=== PATIENT | female | born 1970 | race Caucasian/White ===

== ENCOUNTER 2023-11-08 08:42 | Outpatient (OUT) | payer OTHER, SELFPAY ==
[2023-11-08 08:55] LABS: Hemoglobin 11.6 g/dL (12.0-16.0)
--- NOTE | 2023-11-08 09:00 | RT_ITS ---
The [facility] Test Date: 2023-11-08 Pat Name: AMY WADE Department: Room: - Gender: Female [employer]ic: Makayla Wilcox RRT : 1970 Requested By: MITCH LU Order Number: [id number] Reading MD: Hemant Chisholm Interpretive Statements Pulmonary function testing was completed according to ATS criteria. Findings were considered accurate and reproducible. Both pre- and post-bronchodilator values utilized for spirometry. Spirometry (based on pre-bronchodilator values): -FEV1/FVC: Reduced @ 72% -FEV1: Normal @ 92% -FVC: Normal @ 101% -XDI36-13%: Reduced @ 75% -There is no significant bronchodilator response. Lung volumes by plethysmography (based on pre-bronchodilator values): -RV: Normal @ 92% -TLC: Normal @ 110% Diffusion capacity: -DLCO: Normal @ 91% when corrected for Hb 11.6g/dL Flow-volume loop: -Mild flattening of the flow-volume loop Impressions: -Spirometry trends towards a mild obstruction pattern. There is no bronchodilator response. Lung volumes are normal. The diffusion capacity is normal. Overall PFT suggests a mild obstructive lung disease such as asthma or COPD. Clinical correlation required. Electronically Signed On 11-09-2023 14:24:19 EDT by Hemant Chisholm
[2023-11-08] MEDS: ALBUTEROL SULFATE 2.5 MG/3 ML VIAL NEB IH (10:34)
== END 2023-11-08 08:43 | disposition home or self-care (01) ==
LOC: CARD 08:42
PROVIDERS: PCP Family Medicine; Visit Provider Family Medicine
DX: R06.02 Shortness of breath (principal)
CPT/HCPCS: 36415; 85018; 94060; 94726; 94729

== ENCOUNTER 2023-11-14 09:50 | Outpatient (OUT) | payer OTHER, SELFPAY ==
--- NOTE | 2023-11-14 10:02 | US_ITS ---
The [address] [address] Patient Name: AMY WADE MRN: [id number] date: 1970 Sex: F Assigned Patient Location: [place] Current Patient Location: [place] Accession/Order Number: [id number] Exam Date: 11/14/2023 10:05 Report Date: 11/14/2023 10:36 At the request of: MITCH LU Procedure: US right upper quadrant EXAMINATION: US right upper quadrant HISTORY: generalized abdominal pain R10.84 , chronic right upper quadrant pain, bloating COMPARISON: No relevant comparison available. TECHNIQUE: Transabdominal evaluation of the right upper quadrant. FINDINGS: LIVER: Mild fatty infiltration. No suspicious lesion. Color Doppler demonstrates blood flow within hepatic veins. PORTAL VEIN: Duplex Doppler demonstrates normal hepatopetal flow pattern with flow velocity averaging 22 cm/s. GALLBLADDER: No visible gallstones, wall thickening, or pericholecystic free fluid. Negative sonographic Brown's sign. BILIARY: No abnormal dilation or stones. Common bile duct diameter is within normal limits. PANCREASE: No visible mass, abnormal atrophy, or duct dilation. KIDNEY: No hydronephrosis. No visible mass or stones. Size: 10.1 x 4.9 x 4.1 cm US/US right upper quadrant IMPRESSION: 1. Mild fatty infiltration of the liver. 2. No suspicious findings to account for patient's symptoms. Electronically authenticated by: GUERO LICONA Date: 11/14/2023 10:36
--- NOTE | 2023-11-14 10:03 | MM_ITS ---
Patient Name: AMY WADE MR#: [id number] : 1970 Exam Date: 11/14/2023 Ordering Doctor: DR MITCH LU . RADIOLOGY REPORT PROCEDURE: MM TOMOSYNTHESIS SCREENING BI COMPARISON: MG MAMM SCREEN 3D HERLINDA CAD, 11/06/2021. INDICATIONS: screening Calculator Name NCI Breast Cancer Risk Assessment Tool 5 Year Breast Cancer Risk 0.90% Lifetime Breast Cancer Risk 6.80% Personal Breast Cancer No Personal Ovarian Cancer No Treatments None Family Cancers Grandmother-paternal with lung cancer at age 64; Aunt-maternal with lung cancer at age 58; Uncle-maternal with lung cancer at age 66. LOCATION: The [facility] BREAST COMPOSITION: Scattered areas fibroglandular density. FINDINGS: DIAGNOSTIC CATEGORY 0--INCOMPLETE: NEED ADDITIONAL IMAGING EVALUATION. The breasts are stable in size and overall fibroglandular configuration.Scattered benign-appearing calcifications are present. Scattered benign-appearing lymph nodes are present. RIGHT BREAST: No significant suspicious finding. LEFT BREAST: New ill-defined partially circumscribed 9.6 x 6.9 by 6.6 mm left focal asymmetry upper outer quadrant. Spot compression and ultrasound follow-up recommended. RECOMMENDATIONS: ADDITIONAL MAMMOGRAPHIC VIEWS REQUIRED: LEFT BREAST - spot compression ULTRASOUND: LEFT BREAST PLEASE NOTE: A NORMAL MAMMOGRAM DOES NOT EXCLUDE THE POSSIBILITY OF BREAST CANCER. A CLINICALLY SUSPICIOUS PALPABLE LUMP SHOULD BE BIOPSIED. Dictated by: Lawrence Ricardo MD on 11/15/2023 at 07:43 Approved by: Lawrence Ricardo MD on 11/15/2023 at 07:46
[2023-11-14 10:41] LABS: Basophils Absolute Auto 0.1 10^3/uL (0.0-0.1); Basophils Percent Auto 1.5 % (0.2-2.0); Eosinophils Absolute Auto 0.1 10^3/uL (0.0-0.7); Hematocrit 39.3 % (36.0-48.0); Hemoglobin 12.5 g/dL (12.0-16.0); Immature Granulocytes Abs Auto 0.01 10^3/uL (0.00-0.03); Immature Granulocytes Pct Auto 0.2 % (0.0-0.5); Lymphocytes Absolute Auto 1.3 10^3/uL (1.2-3.8); Lymphocytes Percent Auto 32.5 % (20.5-60.0); Mean Corpuscular HGB Conc 31.8 g/dL (29.9-35.2); Mean Corpuscular Hemoglobin 28.5 pg (26.7-34.0); Mean Corpuscular Volume 89.5 fL (81.0-99.0); Monocytes Absolute Auto 0.4 10^3/uL (0.3-0.8); Monocytes Percent Auto 10.1 % (1.7-12.0); Neutrophils Absolute Auto 2.1 10^3/uL (1.4-6.5); Neutrophils Percent Auto 52.7 % (43.0-75.0); Platelet Count 235 10^3/uL (150-450); Red Blood Count 4.39 10^6/uL (4.20-5.40); Red Cell Distribution Width 13.7 % (11.0-15.0); White Blood Count 4.1 10^3/uL (4.0-11.0)
[2023-11-14 10:58] LABS: Estimated Average Glucose 100 mg/dL; Glycohemoglobin A1C 5.1 % (4.5-6.2)
[2023-11-14 12:50] LABS: Alanine Aminotransferase 32 U/L (14-59); Albumin Globulin Ratio 1.1; Albumin Level 3.8 g/dL (3.4-5.0); Alkaline Phosphatase 68 U/L (46-116); Anion Gap 10.6; Aspartate Amino Transferase 17 U/L (15-37); BUN Creatinine Ratio 23.2; Bilirubin Direct 0.1 mg/dL (0.0-0.2); Bilirubin Total 0.4 mg/dL (0.2-1.0); Calcium 8.9 mg/dL (8.5-10.1); Chloride 107 mmol/L (98-107); Chol HDL Ratio 2.8; Cholesterol 229 mg/dL (<=200); Estimated GFR (African America >60 (>=60); Estimated GFR (Non-African Ame >60 (>=60); Globulin 3.4 g/dL; Glucose 92 mg/dL (74-106); HDL Cholesterol 83 mg/dL (40-60); Potassium 3.6 mmol/L (3.5-5.1); Sodium 143 mmol/L (136-145); Thyroid Stimulating Hormone 2.274 uIU/mL (0.358-3.740); Total Protein 7.2 g/dL (6.4-8.2); Triglycerides 48 mg/dL (<=150); VLDL CHOLESTEROL 9.6 mg/dL
== END 2023-11-14 09:51 | disposition home or self-care (01) ==
LOC: US 09:51
PROVIDERS: PCP Family Medicine; Visit Provider Family Medicine
DX: Z00.00 Encounter for general adult medical examination without abnormal findings (principal); Z12.31 Encounter for screening mammogram for malignant neoplasm of breast; R10.84 Generalized abdominal pain; Z80.1 Family history of malignant neoplasm of trachea, bronchus and lung; N64.89 Other specified disorders of breast
CPT/HCPCS: 36415; 76705; 77063; 77067; 80048; 80061; 80076; 83036; 84443; 85025

== ENCOUNTER 2023-12-01 08:40 | Outpatient (OUT) | payer OTHER, SELFPAY ==
--- NOTE | 2023-12-01 08:45 | MM_ITS ---
Patient Name: AMY WADE MR#: [id number] : 1970 Exam Date: 12/01/2023 Ordering Doctor: DR Alfonso Shaffer . RADIOLOGY REPORT PROCEDURE: MM DIAGNOSTIC MAMMO UNILAT LT, 12/01/2023, 08:08 US BREAST LT LIMITED, 12/01/2023, 09:38 COMPARISON: MM TOMOSYNTHESIS SCREENING BI, 11/14/2023. MG MAMM SCREEN 3D HERLINDA CAD, 11/06/2021. INDICATIONS: Abnormal Mammogram Calculator Name NCI Breast Cancer Risk Assessment Tool 5 Year Breast Cancer Risk 0.90% Lifetime Breast Cancer Risk 6.80% Personal Breast Cancer No Personal Ovarian Cancer No Treatments None Family Cancers Grandmother-paternal with lung cancer at age 64; Aunt-maternal with lung cancer at age 58; Uncle-maternal with lung cancer at age 66. LOCATION: The [facility] BREAST COMPOSITION: There are scattered areas of fibroglandular density. FINDINGS: DIAGNOSTIC CATEGORY 2--BENIGN FINDING: LEFT BREAST: No significant suspicious finding on today's spot magnification views. Ultrasound evaluation demonstrates normal appearing fibroglandular tissue within upper outer quadrant. Annual screening mammography is recommended. RECOMMENDATIONS: ROUTINE MAMMOGRAM AND CLINICAL EVALUATION IN 12 MONTHS. PLEASE NOTE: A NORMAL MAMMOGRAM DOES NOT EXCLUDE THE POSSIBILITY OF BREAST CANCER. A CLINICALLY SUSPICIOUS PALPABLE LUMP SHOULD BE BIOPSIED. Dictated by: Curly Hernandez M.D. on 12/01/2023 at 12:08 Approved by: Curly Hernandez M.D. on 12/01/2023 at 12:10
== END 2023-12-01 08:41 | disposition home or self-care (01) ==
LOC: MAMMO 08:40
PROVIDERS: PCP Family Medicine; Visit Provider Family Medicine
DX: R92.8 Other abnormal and inconclusive findings on diagnostic imaging of breast (principal); Z80.1 Family history of malignant neoplasm of trachea, bronchus and lung
CPT/HCPCS: 76642; 77065

== ENCOUNTER 2023-12-01 08:41 | Outpatient (OUT) | payer OTHER, SELFPAY ==
--- NOTE | 2023-12-01 09:20 | FL_ITS ---
The [address] [address] Patient Name: AMY WADE MRN: [id number] date: 1970 Sex: F Assigned Patient Location: [place] Current Patient Location: [place] Accession/Order Number: [id number] Exam Date: 12/01/2023 10:15 Report Date: 12/01/2023 14:30 At the request of: CHELSEA STEWART Procedure: FL small bowel follow through EXAMINATION: FL upper GI w air, FL small bowel follow through, FL cineradiography HISTORY: Generalized Abdominal Pain R10.84, Cyclic Bloating COMPARISON: No relevant comparison available. TECHNIQUE: Upper GI and small bowel series was performed in the usual manner. Standard level fluoroscopic mode of operation utilized. FINDINGS: ESOPHAGUS: Normal. No visible obstruction, dilatation, reflux or hernia. STOMACH: Normal. No obstruction, mass, or ulceration. Normal motility. DUODENUM: Normal. No ulceration or diverticulum. JEJUNUM: Normal. Normal motility. No obstruction or visible lesion. ILEUM: Normal. Normal motility. No obstruction or visible lesion. OTHER: Negative. FL/FL small bowel follow through IMPRESSION: 1. Normal appearance of the stomach and small bowel. Contrast passes into the colon at 3.5 hours which is within normal limits. Electronically authenticated by: GUERO LICONA Date: 12/01/2023 14:30
--- NOTE | 2023-12-01 09:20 | FL_ITS ---
The [address] [address] Patient Name: AMY WADE MRN: [id number] date: 1970 Sex: F Assigned Patient Location: [place] Current Patient Location: [place] Accession/Order Number: [id number] Exam Date: 12/01/2023 10:15 Report Date: 12/01/2023 14:30 At the request of: CHELSEA STEWART Procedure: FL cineradiography EXAMINATION: FL upper GI w air, FL small bowel follow through, FL cineradiography HISTORY: Generalized Abdominal Pain R10.84, Cyclic Bloating COMPARISON: No relevant comparison available. TECHNIQUE: Upper GI and small bowel series was performed in the usual manner. Standard level fluoroscopic mode of operation utilized. FINDINGS: ESOPHAGUS: Normal. No visible obstruction, dilatation, reflux or hernia. STOMACH: Normal. No obstruction, mass, or ulceration. Normal motility. DUODENUM: Normal. No ulceration or diverticulum. JEJUNUM: Normal. Normal motility. No obstruction or visible lesion. ILEUM: Normal. Normal motility. No obstruction or visible lesion. OTHER: Negative. FL/FL cineradiography IMPRESSION: 1. Normal appearance of the stomach and small bowel. Contrast passes into the colon at 3.5 hours which is within normal limits. Electronically authenticated by: GUERO LICONA Date: 12/01/2023 14:30
--- NOTE | 2023-12-01 09:20 | FL_ITS ---
The [address] [address] Patient Name: AMY WADE MRN: [id number] date: 1970 Sex: F Assigned Patient Location: [place] Current Patient Location: [place] Accession/Order Number: [id number] Exam Date: 12/01/2023 10:15 Report Date: 12/01/2023 14:30 At the request of: CHELSEA STEWART Procedure: FL upper GI w air EXAMINATION: FL upper GI w air, FL small bowel follow through, FL cineradiography HISTORY: Generalized Abdominal Pain R10.84, Cyclic Bloating COMPARISON: No relevant comparison available. TECHNIQUE: Upper GI and small bowel series was performed in the usual manner. Standard level fluoroscopic mode of operation utilized. FINDINGS: ESOPHAGUS: Normal. No visible obstruction, dilatation, reflux or hernia. STOMACH: Normal. No obstruction, mass, or ulceration. Normal motility. DUODENUM: Normal. No ulceration or diverticulum. JEJUNUM: Normal. Normal motility. No obstruction or visible lesion. ILEUM: Normal. Normal motility. No obstruction or visible lesion. OTHER: Negative. FL/FL upper GI w air IMPRESSION: 1. Normal appearance of the stomach and small bowel. Contrast passes into the colon at 3.5 hours which is within normal limits. Electronically authenticated by: GUERO LICONA Date: 12/01/2023 14:30
== END 2023-12-01 08:42 | disposition home or self-care (01) ==
LOC: FL 08:41
PROVIDERS: PCP Family Medicine; Visit Provider Surgery
DX: R92.8 Other abnormal and inconclusive findings on diagnostic imaging of breast (principal); Z80.1 Family history of malignant neoplasm of trachea, bronchus and lung; R10.84 Generalized abdominal pain; K59.09 Other constipation
CPT/HCPCS: 74246; 74248; 76120; 76642; 77065

== ENCOUNTER 2024-09-07 12:54 | Outpatient (OUT) | payer OTHER, SELFPAY ==
--- NOTE | 2024-09-07 12:59 | XR_ITS ---
The [place] [id number] Patient Name: AMY WADE MRN: [id number] date: 1970 Sex: F Assigned Patient Location: [facility] Current Patient Location: Accession/Order Number: [id number] Exam Date: 09/07/2024 13:38 Report Date: 09/10/2024 11:42 At the request of: MITCH LU Procedure: XR lumbar spine 2-3V EXAMINATION: XR lumbar spine 2-3V HISTORY: Lumbar Spondylosis ; chronic low back pain COMPARISON: No relevant comparison available. FINDINGS: BONES: Mild-moderate degenerative facet arthropathy L3-4 through L5-S1. No fracture or spondylolisthesis. DISC SPACES: Moderate narrowing L5-S1. PARASPINOUS: Negative. No paraspinous abnormality is seen. OTHER: Negative. XR/XR lumbar spine 2-3V IMPRESSION: 1. Moderate degenerative changes of lower lumbar spine. Consider MRI for further evaluation. Electronically authenticated by: GUERO LICONA Date: 09/10/2024 11:42
--- OUTSIDE RECORDS SUMMARY | 2024-09-07 13:15 | XMS_ITS | CCD ---
Author Organization [facility] Care Team Providers Care Enterprise Infrastructure Architect Name Role Phone TABITHA, DR ALFONSO Krause Attending Unavailable NADERER, DR ALFONSO Krause Admitting Unavailable NADERER, DR ALFONSO Krause Consulting Unavailable NADERER, DR ALFONSO Krause Admitting Unavailable MONAE, DR GUERO Charles Consulting Unavailable NADERER, DR ALFONSO Krause Attending Unavailable NADERER, DR ALFONSO Krause Consulting Unavailable NADERER, DR ALFONSO Krause Admitting Unavailable WEST, DR MAYCOL Preciado Consulting Unavailable NADERER, DR ALFONSO Krause Attending Unavailable NADERER, DR ALFONSO Krause Consulting Unavailable NADERER, DR ALFONSO Krause Admitting Unavailable WEST, DR MAYCOL Preciado Consulting Unavailable NADERER, DR ALFONSO Krause Attending Unavailable NADERER, DR ALFONSO Krause Consulting Unavailable NADERER, DR ALFONSO Krause Attending Unavailable NADERER, DR ALFONSO Krause Admitting Unavailable NADERER, DR ALFONSO Krause Consulting Unavailable LIBIAMITUL Primary Care Physician ALFONSO LU Primary Care Unavailable OSWALDO MERCHANT Attending Unavailable NADEREAraceli, ALFONSO Primary Care Unavailable ALEX GRIFFIN Attending [facility] OSWALDO Babb Attending Unavailable OSWALDO MERCHANT Referring Unavailable NADEREAraceli, ALFONSO Primary Care Unavailable NADEREAraceli, ALFONSO Attending Unavailable CHELSEA STEWART Attending Unavailable NADERER, ALFONSO Referring Unavailable NADERER, ALFONSO Attending Unavailable NADERER, ALFONSO Attending Unavailable Naderer Alfonso TAMAYO Primary Care Provider Allergies Allergy Classification Reported Allergen(s) Allergy Type Date of Onset Reaction(s) Facility (7 sources) fentaNYL; Translations: [FENTANYL] Drug Allergy 4 GI intolerance [facility] Medications Current Medications Medication Drug Class(es) Dates Sig (Normalized) Sig (Original) [id number] 200 actuat albuterol 0.09 mg/actuat metered dose inhaler (7 sources) beta2-Adrenergic Agonist Start: 11-17-2023 take 2 puff(s) by inhalation every four hours for wheezing albuterol HFA 90 mcg/act inhaler Indications: Mild intermittent asthma without complication (CMS/HCC) Inhale 2 puffs every 4 (four) hours if needed for wheezing 18 g 3 11/17/2023 Active ALPRAZolam 1 mg oral tablet (10 sources) Benzodiazepine Start: 08-31-2023 End: 07-14-2024 take 1 tablet by mouth three times daily as needed for anxiety ALPRAZolam (Xanax) 1 MG tablet Indications: OSCAR (generalized anxiety disorder) (CMS/HCC) Take 1 tablet (1 mg) by mouth 3 (three) times a day as needed for anxiety 90 tablet 1 06/14/2024 Active Start: 10-09-2018 take 1 mg by mouth once daily alprazolam 1 mg, Oral, Daily, Refills(s) 0, Anxiety Start Date: 10/09/18 Status: Ordered cyclobenzaprine hydrochloride 10 mg oral tablet (2 sources) Muscle Relaxant Start: 09-06-2024 take 1 tablet by mouth three times daily as needed for muscle spasms cyclobenzaprine (Flexeril) 10 MG tablet Indications: Lumbar spondylosis Take 1 tablet (10 mg) by mouth 3 (three) times a day as needed for muscle spasms 60 tablet 2 09/06/2024 Active ibuprofen 800 mg oral tablet (7 sources) Nonsteroidal Anti-inflammatory Drug Start: 09-14-2023 take 1 tablet by mouth three times daily as needed ibuprofen 800 MG tablet Indications: Spondylosis without myelopathy or radiculopathy, lumbar region , Lumbosacral spondylosis without myelopathy TAKE 1 TABLET BY MOUTH THREE TIMES A DAY NEEDED 90 tablet 5 09/14/2023 Active lisinopril 10 mg oral tablet (1 source) Angiotensin Converting Enzyme Inhibitor Start: 11-24-2021 take 1 tablet by mouth once daily lisinopril 10 mg Tab 10 mg = 1 tab(s), Oral, Daily, Refills(s) 0 Start Date: 11/24/21 Status: Ordered meclizine hydrochloride 25 mg oral tablet (6 sources) Antiemetic Start: 03-27-2024 take 1 tablet by mouth four times daily as needed for dizziness meclizine (Antivert) 25 MG tablet Indications: Vertigo Take 1 tablet (25 mg) by mouth 4 (four) times a day as needed for dizziness 60 tablet 2 03/27/2024 Active predniSONE 50 mg oral tablet (2 sources) Start: 09-06-2024 End: 09-12-2024 take 1 tablet by mouth once daily predniSONE (Deltasone) 50 MG tablet Indications: Lumbar spondylosis Take 1 tablet (50 mg) by mouth Daily for 6 days 6 tablet 09/06/2024 09/12/2024 Active Semaglutide,0.25 or 0.5MG/DOS, (Ozempic, 0.25 or 0.5 MG/DOSE,) 2 MG/3ML solution pen-injector (7 sources) Start: 07-30-2024 Semaglutide,0.25 or 0.5MG/DOS, (Ozempic, 0.25 or 0.5 MG/DOSE,) 2 MG/3ML solution pen-injector Indications: NAFL (nonalcoholic fatty liver) INJECT 0.5MG UNDER THE SKIN ONCE WEEKLY 3 mL 3 07/30/2024 Active Start: 04-12-2024 Semaglutide,0. 25 or 0.5MG/DOS, (Ozempic, 0.25 or 0.5 MG/DOSE,) 2 MG/3ML solution pen-injector Indications: NAFL (nonalcoholic fatty liver) INJECT 0.5 MG UNDER THE SKIN 1 (ONE) TIME PER WEEK 3 mL 3 04/12/2024 Active Start: 12-29-2023 Semaglutide,0. 25 or 0.5MG/DOS, (Ozempic, 0.25 or 0.5 MG/DOSE,) 2 MG/3ML solution pen-injector Indications: NAFL (nonalcoholic fatty liver) Inject 0.5 mg under the skin 1 (one) time per week 3 mL 3 12/29/2023 Active Completed/Discontinued Medications Medication Drug Class(es) Dates Sig (Normalized) Sig (Original) pantoprazole 40 mg delayed release oral tablet (7 sources) Proton Pump Inhibitor Start: 03-14-2024 End: 09-06-2024 take 1 tablet by mouth before mealtime pantoprazole (ProtoNix) 40 MG EC tablet Indications: Gastroesophageal reflux disease without esophagitis TAKE 1 TABLET (40 MG) BY MOUTH IN THE MORNING. TAKE BEFORE MEALS. DO NOT CRUSH, CHEW, OR SPLIT. 90 tablet 1 03/14/2024 09/06/2024 Discontinued Problems Active Problems Problem Classification Problem Date Documented Da te Episodic/Chronic Anxiety disorders (12 sources) Generalized anxiety disorder; Translations: [Generalized anxiety disorder] Onset: 4 11-24-2021 Chronic Asthma (9 sources) Mild intermittent asthma; Translations: [Mild intermittent asthma, uncomplicated] Onset: 4 11-09-2023 Chronic Attention-deficit, conduct, and disruptive behavior disorders (1 source) Attention deficit hyperactivity disorder, predominantly inattentive type 11-24-2021 Chronic Disorders of lipid metabolism (8 sources) Dyslipidemia; Translations: [Hyperlipidemia, unspecified] Onset: 4 11-24-2021 Chronic Epilepsy; convulsions (10 sources) Epilepsy; 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] Onset: 4 11-24-2021 Chronic Esophageal disorders (7 sources) Gastroesophageal reflux disease without esophagitis; Translations: [Gastro-esophageal reflux disease without esophagitis] Onset: 4 10-26-2023 Chronic Essential hypertension (8 sources) Hypertensive disorder; Translations: [Benign essential hypertension] Onset: 4 11-24-2021 Chronic Headache; including migraine (9 sources) Migraine; Translations: [Migraine without aura, not refractory ] Onset: 4 11-24-2021 Chronic Headache; including migraine (1 source) Headache Onset: Episodic Headache; including migraine (2 sources) Headache; including migraine; Translations: [Headache, unspecified] Onset: 4 Nausea and vomiting (2 sources) Nausea with vomiting, unspecified; Translations: [Vomiting] Onset: 4 Episodic Other gastrointestinal disorders (1 source) Irritable bowel syndrome 11-24-2021 Chronic Other gastrointestinal disorders (7 sources) Irritable bowel syndrome characterized by constipation; Translations: [Irritable bowel syndrome with constipation] Onset: 4 09-14-2023 Chronic Other liver diseases (9 sources) Non-alcoholic fatty liver; Translations: [Fatty (change of) liver, not elsewhere classified] Onset: 4 11-17-2023 Chronic Other nutritional; endocrine; and metabolic disorders (7 sources) Metabolic syndrome X; Translations: [Metabolic syndrome] Onset: 4 11-17-2023 Chronic Other nutritional; endocrine; and metabolic disorders (1 source) Body mass index 25-29 - overweight 12-08-2021 Episodic Other skin disorders (6 sources) Localized swelling, mass and lump, trunk; Translations: [LOCALIZD SWELLING MASS AND LUMP TRUNK] Onset: 2 Episodic Other skin disorders (1 source) Mass of chest wall 11-24-2021 Episodic Residual codes; unclassified (1 source) Family history of malignant neoplasm of trachea, bronchus and lung; Translations: [FAM HX MALIG NEOPLSM TRACH BRON LNG] Onset: 2 Episodic Residual codes; unclassified (1 source) Insomnia 11-24-2021 Episodic Spondylosis; intervertebral disc disorders; other back problems (10 sources) Lumbar spondylosis; Translations: [Spondylosis without myelopathy or radiculopathy, lumbar region] Onset: 4 11-24-2021 Chronic Unclassified (3 sources) CONTACT W/AND (SUSP) EXPOS COVID-19; Translations: [CONTACT W/AND (SUSP) EXPOS COVID-19] Onset: 1 Past or Other Problems Problem Classification Problem Date Documented Date Episodic/Chronic Abdominal pain (7 sources) Generalized abdominal pain; Translations: [Generalized abdominal pain] Onset: 10-26-2023 10-26-2023 Episodic Conditions associated with dizziness or vertigo (8 sources) Vertigo; Translations: [Dizziness and giddiness] Onset: 03-27-2024 03-27-2024 Episodic Disorders usually diagnosed in infancy, childhood, or adolescence (7 sources) Adult attention deficit hyperactivity disorder ; Translations: [Other specified behavioral and emotional disorders with onset usually occurring in childhood and adolescence] Onset: 09-14-2023 Resolved: 11-17-2023 11-17-2023 Chronic Mood disorders (8 sources) Major depressive disorder; Translations: [Recurrent major depressive episodes, mild ] Onset: 09-14-2023 Resolved: 11-17-2023 11-24-2021 Chronic Other screening for suspected conditions (not mental disorders or infectious disease) (11 sources) Encounter for screening mammogram for malignant neoplasm of breast; Translations: [Mammography abnormal] Onset: 11-06-2021 Episodic Unclassified (1 source) CONTACT W/AND (SUSP) EXPOS COVID-19; Translations: [CONTACT W/AND (SUSP) EXPOS COVID-19] Onset: 06-29-2021 Results Test Name Value Interpretation Reference Range Facility CBC AND AUTO DIFFon 11-26-19 24 ABSOLUTE BASOPHIL 0.0 X10E9/L Normal 0.0-0.2 [facility] Comment on above: Performed By: #### Jaimee LINDO CMP, 0-3 #### [facility] ([id number]) [address] [place] [address] 48603 ABSOLUTE NEUTROPHIL 5.2 X10E9/L Normal 1.5-6.6 [facility] Comment on above: Performed By: #### Jaimee LINDO CMP, 3039-3 #### [facility] ([id number]) [address] [place] [address] 17101 Basophils/100 WBC (Bld) 0.7 % Normal [facility] Comment on above: Performed By: #### Jaimee LINDO CMP, 3039-3 #### [facility] ([id number]) [address] [place] [address] 30196 Eosinophils (Bld) [#/Vol] 0.0 10*3/uL Normal 0.0-0.4 [facility] Comment on above: Performed By: #### Jaimee LINDO CMP, 3039-3 #### [facility] ([id number]) [address] [place] [address] 78040 Eosinophils/100 WBC (Bld) 0.1 % Normal [facility] Comment on above: Performed By: #### Jaimee LINDO CMP, 3039-3 #### [facility] ([id number]) [address] [place] [address] 22843 Erythrocyte distribution width (RBC) [Ratio] 14.4 % Normal 11.5-15.0 [facility] Comment on above: Performed By: #### Jaimee LINDO CMP, 3039-10 #### [facility] ([id number]) [address] [place] [address] 62105 Hematocrit (Bld) [Volume fraction] 41.3 % Normal 35-47 [facility] Comment on above: Performed By: #### Jaimee LINDO CMP, 3 #### [facility] ([id number]) [address] [place] [address] 10535 Hemoglobin (Bld) [Mass/Vol] 14.0 g/dL Normal 11.7-15.5 [facility] Comment on above: Performed By: #### Jaimee LINDO CMP, 3039-10 #### [facility] ([id number]) [address] [place] [address] 59259 Lymphocytes (Bld) [#/Vol] 1.1 10*3/uL Normal 1.0-3.5 [facility] Comment on above: Performed By: #### Jaimee LINDO CMP, 3039-10 #### [facility] ([id number]) [address] [place] [address] 70480 Lymphocytes/100 WBC (Bld) 16.8 % Normal [facility] Comment on above: Performed By: #### Jaimee LINDO CMP, 3039-10 #### [facility] ([id number]) [address] [place] [address] 82805 MCH (RBC) [Entitic mass] 29.0 pg Normal 27-34 [facility] Comment on above: Performed By: #### Jaimee LINDO CMP, 3 #### [facility] ([id number]) [address] [place] [address] 02682 MCHC (RBC) [Mass/Vol] 33.9 g/dL Normal 32-36 [facility] Comment on above: Performed By: #### Jaimee LINDO CMP, 3 #### [facility] ([id number]) [address] [place] [address] 15995 MCV (RBC) [Entitic vol] 86 fL Normal 80-100 [facility] Comment on above: Performed By: #### Jaimee LINDO CMP, 3040-3 #### [facility] ([id number]) [address] [place] [address] 52412 Monocytes (Bld) [#/Vol] 0.5 10*3/uL Normal 0-0.9 [facility] Comment on above: Performed By: #### Jaimee LINDO CMP, 3 #### [facility] ([id number]) [address] [place] [address] 57086 Monocytes/100 WBC (Bld) 6.8 % Normal [facility] Comment on above: Performed By: #### Jaimee LINDO CMP, 3 #### [facility] ([id number]) [address] [place] [address] 65944 Neutrophils/100 WBC (Bld) 75.6 % Normal [facility] Comment on above: Performed By: #### Jaimee LINDO, CMP, 3 #### [facility] ([id number]) [address] [place] [address] 31702 Platelet mean volume (Bld) [Entitic vol] 9.9 fL Normal 7-12 [facility] Comment on above: Performed By: #### Jaimee LINDO CMP, 3039-3 #### [facility] ([id number]) [address] [place] [address] 65617 Platelets (Bld) [#/Vol] 296 10*3/uL Normal 150-450 [facility] Comment on above: Performed By: #### Jaimee LINDO, CMP, 3039-3 #### [facility] ([id number]) [address] [place] [address] 88826 RBC COUNT 4.82 X10E12/L Normal 3.80-5.20 [facility] Comment on above: Performed By: #### C TAHIRA LINDO, 3040-3 #### [facility] ([id number]) [address] [place] [address] 13349 WBC (Bld) [#/Vol] 6.8 10*3/uL Normal 4.0-11.0 [facility] Comment on above: Performed By: #### C TAHIRA LINDO, 3039-3 #### [facility] ([id number]) [address] [place] [address] 41498 COMPREHENSIVE METABOLIC PANE Maulik 11-26-2023 Albumin [Mass/Vol] 4.7 g/dL Normal 3.2-5.3 [facility] Comment on above: Performed By: #### Jaimee LINDO CMP, 0-3 #### [facility] ([id number]) [address] [place] [address] 60446 ALP [Catalytic activity/Vol] 77 U/L Normal 39-130 [facility] Comment on above: Performed By: #### Jaimee LINDO CMP, 0-3 #### [facility] ([id number]) [address] [place] [address] 40323 ALT [Catalytic activity/Vol] 23 U/L Normal 0-31 [facility] Comment on above: Result Comment: SPEC IMEN HEMOLYZED, RESULTS INCREASED Performed By: #### C BELGICA, CMP, 0-3 #### [facility] ([id number]) [address] [place] [address] 76633 Anion gap [Moles/Vol] 12 mmol/L Normal 5-15 [facility] Comment on above: Performed By: #### Jaimee LINDO, CMP, 3040-3 #### [facility] ([id number]) [address] [place] [address] 31255 AST [Catalytic activity/Vol] 34 U/L Normal 0-41 [facility] Comment on above: Result Comment: SPEC IMEN HEMOLYZED, RESULTS INCREASED Performed By: #### C TAHIRA LINDO, 0-3 #### [facility] ([id number]) [address] [place] [address] 80036 Bilirubin [Mass/Vol] 1.2 mg/dL Normal 0.3-1.2 [facility] Comment on above: Result Comment: RESU LTS QUESTIONABLE DUE TO HEMOLYSIS Performed By: #### C TAHIRA LINDO, 3039-3 #### [facility] ([id number]) [address] [place] [address] 79184 Calcium [Mass/Vol] 9.3 mg/dL Normal 8.5-10.5 [facility] Comment on above: Performed By: #### C TAHIRA LINDO, 3039-3 #### [facility] ([id number]) [address] [place] [address] 73212 Chloride [Moles/Vol] 106 mmol/L Normal 98-109 [facility] Comment on above: Performed By: #### C TAHIRA LINDO, 3039-3 #### [facility] ([id number]) [address] [place] [address] 40600 CO2 [Moles/Vol] 21 mmol/L Low 22-32 [facility] Comment on above: Performed By: #### Jaimee LINDO CMP, 3039-3 #### [facility] ([id number]) [address] [place] [address] 67821 Creatinine [Mass/Vol] 0.79 mg/dL Normal 0.40-1.00 [facility] Comment on above: Result Comment: METH OD TRACEABLE TO IDMS STANDARD Performed By: #### C TAHIRA LINDO, 0-3 #### [facility] ([id number]) [address] [place] [address] 92290 GFR/1.73 sq M.predicted among non-blacks MDRD (S/P/Bld) [Vol rate/Area] 89 mL/min/{1.73_m2} Normal >59 [facility] Comment on above: Result Comment: Reported eGFR is based on the CKD-EPI 2020 equation that does not use a race coefficient. Performed By: #### C TAHIRA LINDO, 3040-3 #### [facility] ([id number]) [address] [place] [address] 66699 Glucose [Mass/Vol] 90 mg/dL Normal 65-99 [facility] Comment on above: Performed By: #### Jaimee LINDO CMP, 3039-3 #### [facility] ([id number]) [address] [place] [address] 32047 Potassium [Moles/Vol] 4.0 mmol/L Normal 3.5-5.0 [facility] Comment on above: Result Comment: SPEC IMEN HEMOLYZED, RESULTS INCREASED Performed By: #### Jaimee LINDO CMP, 3 #### [facility] ([id number]) [address] [place] [address] 39750 Protein [Mass/Vol] 8.2 g/dL High 6.0-8.0 [facility] Comment on above: Performed By: #### Jaimee LINDO CMP, 3039-3 #### [facility] ([id number]) [address] [place] [address] 52775 Sodium [Moles/Vol] 139 mmol/L Normal 134-146 [facility] Comment on above: Performed By: #### C TAHIRA LINDO, 0-3 #### [facility] ([id number]) [address] [place] [address] 53455 Urea nitrogen [Mass/Vol] 21 mg/dL Normal 5-23 [facility] Comment on above: Performed By: #### Jaimee LINDO CMP, 0-3 #### [facility] ([id number]) [address] [place] [address] [place] [address] [address]RAIN WO CONT[address] CT BRAIN WO CONT CT BRAIN WO CONT CLINICAL INFORMATION: Headache, chronic, new features or increased frequency TECHNIQUE: CT BRAIN WO CONT CT images of the brain were obtained. There is no acute intracranial hemorrhage or cortical infarct. No mass is seen. Basilar cisterns are patent. Osseous structures are unremarkable. IMPRESSION: No acute intracranial findings. All CT scans at this facility use dose modulation, iterative reconstruction, and/or weight based dosing when appropriate to reduce radiation dose to as low as reasonably achievable. Finalized by Nicola Saleh MD on 11/26/2023 10:40 AM Normal [facility] LIPASEon 11-26-2023 Lipase [Catalytic activity/Vol] 27 U/L Normal 17-40 [facility] Comment on above: Performed By: #### C BCA, CMP, 3040-3 #### [facility] ([id number]) [address] [place] [address] 00533 URN MACROSCOPIC NURon 2023 BILIRUBIN DAYDAY Small Abnormal NEG [facility] Comment on above: Performed By: #### N UM #### [facility] ([id number]) [address] [place] [address] 07846 BLOOD/HGB DAYDAY Trace Abnormal NEG [facility] Comment on above: Performed By: #### N UM #### [facility] ([id number]) [address] [place] [address] 00100 GLUCOSE DAYDAY Negative Normal NEG [facility] Comment on above: Performed By: #### N UM #### [facility] ([id number]) [address] [place] [address] 45244 KETONES DAYDAY 40 mg/dL Abnormal NEG [facility] Comment on above: Performed By: #### N UM #### [facility] ([id number]) [address] [place] [address] 14883 LEUKOCYTE ESTERASE DAYDAY Negative Normal NEG [facility] Comment on above: Performed By: #### N UM #### [facility] ([id number]) [address] [place] [address] 26081 NITRITE DAYDAY Negative Normal NEG [facility] Comment on above: Performed By: #### N UM #### [facility] ([id number]) [address] [place] [address] 06857 PH DAYDAY 5.5 Normal 5.0-8.5 [facility] Comment on above: Performed By: #### N UM #### [facility] ([id number]) [address] [place] [address] 99501 PROTEIN DAYDAY Negative Normal NEG [facility] Comment on above: Performed By: #### N UM #### [facility] ([id number]) [address] [place] [address] 75944 SPECIFIC GRAVITY DAYDAY >=1.030 Normal 1.003-1.035 [facility] Comment on above: Performed By: #### N UM #### [facility] ([id number]) [address] [place] [address] 77996 UROBILINOGEN DAYDAY 0.2 eu/dL Normal <1.1 [facility] Comment on above: Performed By: #### N UM #### [facility] ([id number]) [address] [place] [address] 14057 RAD - CT Reporton 12-03-2021 RAD - CT Report [id number] #1.00CD:127 Normal [facility] RAD - MISCon 11-29-2021 RAD - MISC [id number] #1.00CD:127 Normal [facility] RAD - Ultrasound Reporton RAD - Ultrasound Report [id number] #1.00CD:127 Normal [facility] Physician Referralon 022 Physician Referral [id number] #1.00CD:127 Normal [facility] CT CHEST W CONon 11-13-2021 CT CHEST W CON EXAMINATION: CT CHEST W CON HISTORY: Mass of chest wall ; acute right upper and left lateral lower chest wall masses COMPARISON: No relevant comparison available. TECHNIQUE: Multi-planar CT images were created with IV contrast. Axial, Coronal, and Sagittal images. Dose reduction techniques were achieved by using automated exposure control and/or adjustment of mA and/or kV according to patient size and/or use of iterative reconstruction technique. FINDINGS: LUNGS: No visible pulmonary disease. PLEURA: No mass, effusion, or pneumothorax. VASCULATURE: No abnormality. GARIMA: No mass or adenopathy. MEDIASTINUM: No mass or adenopathy. CARDIAC: No enlargement, pericardial thickening, or significant calcification. AORTA: No aneurysm or dissection. CHEST WALL: No mass or axillary adenopathy. Skin surface marker over the upper anterior chest wall just right of midline with no underlying abnormality. Skin surface marker over the lower left lateral chest wall with no underlying abnormality. BONES: No bone lesion or fracture. LIMITED ABDOMEN: Small right hepatic lobe hypodensity favoring a cyst or hemangioma. Limited images of the upper abdomen. OTHER: Negative. IMPRESSION: 1. No abnormal or suspicious findings to account for patient's palpable lumps. Electronically authenticated by: GUERO LICONA Date: 2021-11-13 09:15 Normal [facility] MG MAMM SCREEN 3D HERLINDA CADon 11-06-2021 MG MAMM SCREEN 3D HERLINDA CAD Patient: AMY WADE Exam Date: 11/06/2021 : 1970 Gender:F Ordering : DR ALFONSO LU . Admission #: [id number] Family : Order #: [id number] CLICK HERE TO VIEW EXAM RADIOLOGY REPORT PROCEDURE: MAMMOGRAM SCREENING 3D BILATERAL CAD COMPARISON: None. INDICATIONS: Screening mammography Calculator Name NCI Breast Cancer Risk Assessment Tool 5 Year Breast Cancer Risk 0.80% Lifetime Breast Cancer Risk 7.00% Personal Breast Cancer No Personal Ovarian Cancer No Treatments None Family Cancers Grandmother-paternal with lung cancer at age 64; Aunt-maternal with lung cancer at age 58; Uncle-maternal with lung cancer at age 66. LOCATION: [facility] BREAST COMPOSITION: Scattered areas fibroglandular density. FINDINGS: DIAGNOSTIC CATEGORY 1--NEGATIVE. Scattered benign-appearing lymph nodes are present. RIGHT BREAST: No significant suspicious finding. LEFT BREAST: No significant suspicious finding. RECOMMENDATIONS: ROUTINE MAMMOGRAM AND CLINICAL EVALUATION IN 12 MONTHS. PLEASE NOTE: A NORMAL MAMMOGRAM DOES NOT EXCLUDE THE POSSIBILITY OF BREAST CANCER. A CLINICALLY SUSPICIOUS PALPABLE LUMP SHOULD BE BIOPSIED. Dictated by: Maycol Chand MD on 11/06/2021 at 08:27 Approved by: Maycol Chand MD on 11/06/2021 at 09:22 Normal [facility] CBC AUTO DIFFon 11-05-2021 BASO # 0.0 103/ul Normal 0.0-0.1 [facility] Comment on above: Performed By: #### L IVER, LIPID, BMP, TSH #### [facility] [address] [place] [address] Dr. Saray Daniels Basophils/100 WBC (Bld) 1.0 % Normal 0.2-2.0 [facility] Comment on above: Performed By: #### L IVER, LIPID, BMP, TSH #### [facility] [address] [place] [address] Dr. Saray Daniels EO # 0.2 103/ul Normal 0.0-0.7 [facility] Comment on above: Performed By: #### L IVER, LIPID, BMP, TSH #### [facility] [address] [place] [address] Dr. Saray Daniels Eosinophils/100 WBC (Bld) 3.8 % Normal 0.9-7.0 [facility] Comment on above: Performed By: #### L IVER, LIPID, BMP, TSH #### [facility] [address] [place] [address] Dr. Saray Daniels Erythrocyte distribution width (RBC) [Ratio] 13.2 % Normal 11.0-15.0 [facility] Comment on above: Performed By: #### L IVER, LIPID, BMP, TSH #### [facility] [address] [place] [address] Dr. Saray Daniels Hematocrit (Bld) [Volume fraction] 36.0 % Normal 36.0-48.0 [facility] Comment on above: Performed By: #### L IVER, LIPID, BMP, TSH #### [facility] [address] [address] [address] Saray Daniels Hemoglobin (Bld) [Mass/Vol] 11.9 g/dL Critically low 12.0-16.0 [facility] Comment on above: Performed By: #### L IVER, LIPID, BMP, TSH #### [facility] [address] [place] [address] Dr. Saray Daniels IG # 0.00 10e3/ul Normal 0.00-0.03 [facility] Comment on above: Performed By: #### L IVER, LIPID, BMP, TSH #### [facility] [address] [place] [address] Dr. Saray Daniels IG % 0.0 % Normal 0.0-0.5 [facility] Comment on above: Performed By: #### L IVER, LIPID, BMP, TSH #### [facility] [address] [place] [address] Dr. Saray Daniels LYMPH # 1.9 103/ul Normal 1.2-3.8 [facility] Comment on above: Performed By: #### L IVER, LIPID, BMP, TSH #### [facility] [address] [place] [address] Dr. Saray Daniels Lymphocytes/100 WBC (Bld) 48.3 % Normal 20.5-60.0 [facility] Comment on above: Performed By: #### L IVER, LIPID, BMP, TSH #### [facility] [address] [address] [address] Saray Daniels MANUAL DIFF REQ NO Normal [facility] Comment on above: Performed By: #### L IVER, LIPID, BMP, TSH #### [facility] [address] [place] [address] Dr. Saray Daniels MCH (RBC) [Entitic mass] 29.2 pg Normal 26.7-34.0 [facility] Comment on above: Performed By: #### L IVER, LIPID, BMP, TSH #### [facility] [address] [place] [address] Dr. Saray Daniels MCHC (RBC) [Mass/Vol] 33.1 g/dL Normal 29.9-35.2 [facility] Comment on above: Performed By: #### L IVER, LIPID, BMP, TSH #### [facility] [address] [place] [address] Dr. Saray Daniels MCV (RBC) [Entitic vol] 88.2 fL Normal 81.0-99.0 [facility] Comment on above: Performed By: #### L IVER, LIPID, BMP, TSH #### [facility] [address] [place] [address] Dr. Saray Daniels MONO # 0.4 103/ul Normal 0.3-0.8 [facility] Comment on above: Performed By: #### L IVER, LIPID, BMP, TSH #### [facility] [address] [place] [address] Dr. Saray Daniels Monocytes/100 WBC (Bld) 10.5 % Normal 1.7-12.0 [facility] Comment on above: Performed By: #### L IVER, LIPID, BMP, TSH #### [facility] [address] [place] [address] Dr. Saray Daniels NEUT # 1.4 103/ul Normal 1.4-6.5 [facility] Comment on above: Performed By: #### L IVER, LIPID, BMP, TSH #### [facility] [address] [place] [address] Dr. Saray Daniels Neutrophils/100 WBC (Bld) 36.4 % Critically low 43.0-75.0 [facility] Comment on above: Performed By: #### L IVER, LIPID, BMP, TSH #### [facility] [address] [place] [address] Dr. Saray Daniels Platelet mean volume (Bld) [Entitic vol] 10.4 fL Normal 9.5-13.5 [facility] Comment on above: Performed By: #### L IVER, LIPID, BMP, TSH #### [facility] [address] [address] [address] Saray Daniels PLT 220 103/ul Normal 150-450 [facility] Comment on above: Performed By: #### L IVER, LIPID, BMP, TSH #### [facility] [address] [address] [address] Saray Daniels RBC 4.08 106/ul Critically low 4.20-5.40 [facility] Comment on above: Performed By: #### L IVER, LIPID, BMP, TSH #### [facility] [address] [address] [address] Saray Daniels WBC 3.9 103/ul Critically low 4.0-11.0 [facility] Comment on above: Performed By: #### L IVER, LIPID, BMP, TSH #### [facility] [address] [address] [address] Saray Daniels GLYCOHEMOGLOBIN A1Con 2021 ADA RECOMMENDATION ADA THERAPEUTIC TARGET 6.0 - 7.0 ACTION SUGGESTED > 7.0 Normal [facility] Comment on above: Performed By: #### A 1C #### [facility] [address] [address] [address] Saray Daniels Glucose [Mass/Vol] 114 mg/dL Normal [place] Comment on above: Performed By: #### A 1C #### [facility] [address] [address] [address] Saray Daniels HbA1c (Bld) [Mass fraction] 5.6 % Normal <=6.0 [facility] Comment on above: Performed By: #### A 1C #### [facility] [address] [address] [address] Saray Daniels LIPID PROFILEon 11-05-2021 CHOL-HDL RATIO NORM SEE BELOW Normal [facility] Comment on above: Result Comment: 3.3 - 4.4 LOW RISK 4.4 - 7.1 AVERAGE RISK 7.1 - 11.0 MODERATE RISK >11.0 HIGH RISK Performed By: #### L IVER, LIPID, BMP, TSH #### [facility] [address] [address] [address] Saray Daniels Cholesterol [Mass/Vol] 212 mg/dL Critically high <=200 [facility] Comment on above: Performed By: #### L IVER, LIPID, BMP, TSH #### [facility] [address] [address] [address] Saray Daniels Cholesterol in HDL [Mass/Vol] 78 mg/dL Critically high 40-60 [facility] Comment on above: Performed By: #### L IVER, LIPID, BMP, TSH #### [facility] [address] [address] [address] Saray Daniels Cholesterol in LDL [Mass/Vol] 126.4 mg/dL Normal [facility] Comment on above: Performed By: #### L IVER, LIPID, BMP, TSH #### [facility] [address] [place] [address] Dr. Saray Daniels Cholesterol.total/Cho lesterol in HDL [Mass ratio] 2.7 {ratio} Normal [facility] Comment on above: Performed By: #### L IVER, LIPID, BMP, TSH #### [facility] [address] [address] [address] Saray Daniels HDL NORMAL > or = 60 mg/dl - LOW CARDIOVASCULAR RISK <40 mg/dl - HIGH CARDIOVASCULAR RISK Normal [facility] Comment on above: Performed By: #### L IVER, LIPID, BMP, TSH #### [facility] [address] [address] [address] Saray Daniels LDL CALC NORMAL SEE BELOW Normal [facility] Comment on above: Result Comment: <100 mg/dl OPTIMAL 100 - 129 mg/dl NEAR OR ABOVE OPTIMAL 130 - 159 mg/dl BORDERLINE HIGH 160 - 189 mg/dl HIGH >190 mg/dl VERY HIGH Performed By: #### L IVER, LIPID, BMP, TSH #### [facility] [address] [address] [address] Saray Daniels Triglyceride [Mass/Vol] 38 mg/dL Normal <=150 [facility] Comment on above: Performed By: #### L IVER, LIPID, BMP, TSH #### [facility] [address] [address] [address] Saray Daniels VLDL CALC 7.6 mg/dL Normal [facility] Comment on above: Performed By: #### L IVER, LIPID, BMP, TSH #### [facility] [address] [address] [address] Saray Daniels LIVER PROFILEon 11-05-2021 Albumin [Mass/Vol] 3.9 g/dL Normal 3.4-5.0 [place] Comment on above: Performed By: #### L IVER, LIPID, BMP, TSH #### [facility] [address] [address] [address] Saray Daniels Albumin/Globulin [Mass ratio] 1.3 {ratio} Normal [facility] Comment on above: Performed By: #### L IVER, LIPID, BMP, TSH #### [facility] [address] [address] [address] Saray Daniels ALP [Catalytic activity/Vol] 69 U/L Normal 46-116 [facility] Comment on above: Performed By: #### L IVER, LIPID, BMP, TSH #### [facility] [address] [address] [address] Saray Daniels ALT [Catalytic activity/Vol] 25 U/L Normal 14-59 [facility] Comment on above: Performed By: #### L IVER, LIPID, BMP, TSH #### [facility] [address] [address] [address] Saray Daniels AST [Catalytic activity/Vol] 21 U/L Normal 15-37 [facility] Comment on above: Performed By: #### L IVER, LIPID, BMP, TSH #### [facility] [address] [address] [address] Saray Daniels BILI, CONJUGATED 0.1 mg/dL Normal 0.0-0.[address] [facility] Comment on above: Performed By: #### L IVER, LIPID, BMP, TSH #### [facility] [address] [address] [address] Saray Daniels Bilirubin [Mass/Vol] 0.4 mg/dL Normal 0.2-1.3 [facility] Comment on above: Performed By: #### L IVER, LIPID, BMP, TSH #### [facility] [address] [place] [address] Dr. Saray Daniels Globulin (S) [Mass/Vol] 3.0 g/dL Normal [facility] Comment on above: Performed By: #### L IVER, LIPID, BMP, TSH #### [facility] [address] [place] [address] Dr. Saray Daniels Protein [Mass/Vol] 6.9 g/dL Normal 6.1-8.2 [place] Comment on above: Performed By: #### L IVER, LIPID, BMP, TSH #### [facility] [address] [place] [address] Dr. Saray Daniels PROF CHEM 8 (BAS METB)on Anion gap [Moles/Vol] 11.2 mmol/L Normal [facility] Comment on above: Performed By: #### L IVER, LIPID, BMP, TSH #### [facility] [address] [place] [address] Dr. Saray Daniels Calcium [Mass/Vol] 8.6 mg/dL Normal 8.5-10.1 [place] Comment on above: Performed By: #### L IVER, LIPID, BMP, TSH #### [facility] [address] [place] [address] Dr. Saray Daniels Chloride [Moles/Vol] 106 mmol/L Normal 98-107 [facility] Comment on above: Performed By: #### L IVER, LIPID, BMP, TSH #### [facility] [address] [place] [address] Dr. Saray Daniels CO2 [Moles/Vol] 29.4 mmol/L Normal 22.0-30.[address] [facility] Comment on above: Performed By: #### L IVER, LIPID, BMP, TSH #### [facility] [address] [place] [address] Dr. Saray Daniels Creatinine [Mass/Vol] 0.62 mg/dL Normal 0.52-1.04 [facility] Comment on above: Performed By: #### L IVER, LIPID, BMP, TSH #### [facility] [address] [place] [address] Dr. Saray Daniels EGFR-AF BRITISH >60 Normal >=[address] [facility] Comment on above: Performed By: #### L IVER, LIPID, BMP, TSH #### [facility] [address] [address] [address] Saray Daniels EGFR-NON AF BRITISH >60 Normal >=60 [facility] Comment on above: Performed By: #### L IVER, LIPID, BMP, TSH #### [facility] [address] [place] [address] Dr. Saray Daniels Glucose [Mass/Vol] 89 mg/dL Normal 74-106 [place] Comment on above: Performed By: #### L IVER, LIPID, BMP, TSH #### [facility] [address] [place] [address] Dr. Saray Daniels Potassium [Moles/Vol] 3.6 mmol/L Normal 3.4-5.0 [facility] Comment on above: Performed By: #### L IVER, LIPID, BMP, TSH #### [facility] [address] [place] [address] Dr. Saray Daniels Sodium [Moles/Vol] 143 mmol/L Normal 137-145 [facility] Comment on above: Performed By: #### L IVER, LIPID, BMP, TSH #### [facility] [address] [place] [address] Dr. Saray Daniels Urea nitrogen [Mass/Vol] 16.0 mg/dL Normal 7.0-18.0 [facility] Comment on above: Performed By: #### L IVER, LIPID, BMP, TSH #### [facility] [address] [place] [address] Dr. Saray Daniels Urea nitrogen/Creatinine [Mass ratio] 25.8 mg/mg Normal [facility] Comment on above: Performed By: #### L IVER, LIPID, BMP, TSH #### [facility] [address] [address] [address] Saray Daniels TSHon 11-05-2021 TSH 1.520 uIU/mL Normal 0.470-4.680 [facility] Comment on above: Performed By: #### L IVER, LIPID, BMP, TSH #### [facility] [address] [place] [address] Dr. Saray Daniels TSH RANGE SEE BELOW Normal [facility] Comment on above: Result Comment: <0.3 4 UIU/ml HYPERTHYROID 0.34-5.60 UIU/ml EUTHYROID >5.60 UIU/ml HYPOTHYROID Performed By: #### L IVER, LIPID, BMP, TSH #### [facility] [address] [place] [address] Dr. Saray Daniels US CHESTon 11-05-2021 US CHEST EXAM: US CHEST HISTORY: Mass of chest wall COMPARISON: None. TECHNIQUE: Grayscale and color ultrasound FINDINGS: Ultrasound in the area the patient's palpable mass demonstrates normal-appearing sternum and ribs. Normal skin and subcutaneous tissue. No focal ultrasound mass IMPRESSION: No focal ultrasound mass to correspond to the patient's palpable abnormality. Normal sternum and ribs observed Electronically authenticated by: MAYCOL CHAND Date: 2021-11-05 08:37 Normal [facility] XR CHEST 2 Von 11-05-2021 XR CHEST 2 V EXAMINATION: XR CHEST 2 V HISTORY: Mass of chest wall COMPARISON: 03/23/2015 TECHNIQUE: PA and lateral FINDINGS: LUNGS: No significant pulmonary parenchymal abnormalities. VASCULATURE: No increased pulmonary vasculature. PLEURA: No pneumothorax, effusion, or pleural thickening. CARDIAC: No cardiomegaly or cardiac silhouette abnormality. MEDIASTINUM: No visible mass or adenopathy. BONES: No fracture or visible bone lesion. OTHER: Negative. IMPRESSION: No acute disease. Electronically authenticated by: MAYCOL CHAND Date: 2021-11-05 08:38 Normal [facility] Covid-19 PCR (CVD[facility])on 06-09 SARS-CoV-2 (COVID-19) RNA JARRED+probe Ql (Unsp spec) Not detected Normal NOT DETECTED [facility] Comment on above: Result Comment: This test is not yet approved or cleared by the [place] FDA. When there are no FDA-approved or cleared tests available, and other criteria are met, FDA can make tests available under an emergency access mechanism called an Emergency Use Authorization (EUA). The EUA for this test is supported by the [place] of Health and Human Service's (HHS's) declaration that circumstances exist to justify the emergency use of in vitro diagnostics for the detection and/or diagnosis of the virus that causes COVID-19. This EUA will remain in effect (meaning this test can be used) for the duration of the COVID-19 declaration justifying emergency of IVDs, unless it is terminated or revoked by FDA (after which the test may no longer be used). When diagnostic testing is negative, the possibility of a false negative should be considered in the context of a patient's recent exposures and the presence of clinical signs and symptoms consistent with SARS-CoV-2. Performed By: #### C VDTBH #### [facility] [address] [place] [address] Dr. Saray Daniels Covid-19 PCR ([facility])on 04-10 SARS-CoV-2 (COVID-19) RNA JARRED+probe Ql (Unsp spec) Not detected Normal NOT DETECTED [facility] Comment on above: Result Comment: This test is not yet approved or cleared by the [place] FDA. When there are no FDA-approved or cleared tests available, and other criteria are met, FDA can make tests available under an emergency access mechanism called an Emergency Use Authorization (EUA). The EUA for this test is supported by the [place] of Health and Human Service's (HHS's) declaration that circumstances exist to justify the emergency use of in vitro diagnostics for the detection and/or diagnosis of the virus that causes COVID-19. This EUA will remain in effect (meaning this test can be used) for the duration of the COVID-19 declaration justifying emergency of IVDs, unless it is terminated or revoked by FDA (after which the test may no longer be used). When diagnostic testing is negative, the possibility of a false negative should be considered in the context of a patient's recent exposures and the presence of clinical signs and symptoms consistent with SARS-CoV-2. Performed By: #### L IVER, LIPID, BMP, TSH #### [facility] [address] [address] [address] Saray Daniels Vital Signs Date Time Vital Sign Value Performing Clinician Facility 09-06-2024 15:41-0500 Body height 160 cm Alfonso Lu MD Work Phone: [facility] 09-06-2024 15:41-0500 Body mass index (BMI) [Ratio] 26.04 kg/m2 Alfonso Lu MD Work Phone: [facility] 09-06-2024 15:41-0500 Body temperature 97.81 [degF] Alfonso Lu MD Work Phone: [facility] 09-06-2024 15:41-0500 Body weight 66.68 kg Alfonso Lu MD Work Phone: [facility] 09-06-2024 15:41-0500 Diastolic blood pressure 78 mm[Hg] Alfonso Lu MD Work Phone: [facility] 09-06-2024 15:41-0500 Heart rate 80 /min Alfonso Lu MD Work Phone: [facility] 09-06-2024 15:41-0500 Respiratory rate 18 /min Alfonso Lu MD Work Phone: [facility] 09-06-2024 15:41-0500 SaO2% (BldA) [Mass fraction] 98 % Alfonso Lu MD Work Phone: [facility] 09-06-2024 15:41-0500 Systolic blood pressure 126 mm[Hg] Alfonso Lu MD Work Phone: [facility] 03-27-2024 09:53-0400 Body height 160 cm Alfonso Lu MD Work Phone: [facility] 03-27-2024 09:53-0400 Body mass index (BMI) [Ratio] 24.98 kg/m2 Alfonso Lu MD Work Phone: [facility] 03-27-2024 09:53-0400 Body temperature 97.11 [degF] Alfonso Lu MD Work Phone: [facility] 03-27-2024 09:53-0400 Body weight 63.96 kg Alfonso Lu MD Work Phone: [facility] 03-27-2024 09:53-0400 Diastolic blood pressure 70 mm[Hg] Alfonso Lu MD Work Phone: [facility] 03-27-2024 09:53-0400 Heart rate 65 /min Alfonso Lu MD Work Phone: [facility] 03-27-2024 09:53-0400 Respiratory rate 20 /min Alfonso Lu MD Work Phone: [facility] 03-27-2024 09:53-0400 SaO2% (BldA) [Mass fraction] 98 % Alfonso Lu MD Work Phone: [facility] 03-27-2024 09:53-0400 Systolic blood pressure 112 mm[Hg] Alfonso Lu MD Work Phone: [facility] 12-08-2021 09:15-0400 Blood Pressure Location Alex NILL [facility] [place] 12-08-2021 09:15-0400 Diastolic blood pressure 93 mm[Hg] Alex NILL [facility] [place] 12-08-2021 09:15-0400 Heart rate 55 /min Alex NILL [facility] [place] 12-08-2021 09:15-0400 Respiratory rate 16 /min Alex NILL [facility] [place] 12-08-2021 09:15-0400 Systolic blood pressure 152 mm[Hg] Alex NILL [facility] [place] Encounters Encounter Date Encounter Type Care Provider Facility Start: 09-06-2024 End: 09-06-2024 Office outpatient visit 15 minutes Alfonso Lu MD Work Phone: [facility] Comment on above: Lumbar spondylosis ( Primary Dx) Start: 06-14-2024 End: 06-14-2024 Refill Alfonso Lu MD Work Phone: [facility] Comment on above: OSCAR (generalized anx iety disorder) (CMS/HCC) Start: 04-12-2024 End: 04-12-2024 Refill Alfonso Lu MD Work Phone: [facility] Comment on above: OSCAR (generalized anx iety disorder) (CMS/HCC) Start: 03-27-2024 End: 03-27-2024 Bamboo flowsheet Alfonso Lu MD Work Phone: [facility] Start: 03-27-2024 End: 03-27-2024 Bamboo flowsheet Alfonso Lu MD Work Phone: [facility] Start: 03-27-2024 End: 03-27-2024 Office outpatient visit 25 minutes Alfonso Lu MD Work Phone: [facility] Comment on above: Vertigo (Primary Dx) ; Migraine without aura and without status migrainosus, not intractable (CMS/HCC); OSCAR (generalized anxiety disorder) ([facility]); Mild intermittent asthma without complication ([facility]); NAFL (nonalcoholic fatty liver); Epilepsy, temporal lobe ([facility]/HCC) Start: 03-27-2024 End: 03-27-2024 ambulatory ALFONSO LU Not Available Start: 11-26-2023 End: 11-27-2023 Emergency department patient visit ALFONSO LU [facility] Start: 11-26-2023 End: 11-27-2023 Emergency department patient visit OSWALDO MERCHANT [facility] Start: 11-26-2023 End: 11-26-2023 Emergency department patient visit ALFONSO LU [facility] Start: 11-17-2023 End: 11-17-2023 ambulatory ALFONSO LU Not Available Start: 11-16-2023 End: 11-16-2023 ambulatory CHELSEA STEWART Not Available Start: 10-26-2023 End: 10-26-2023 ambulatory ALFONSO LU Not Available Start: 10-26-2023 Patient encounter procedure Alfonso Lu MD Work Phone: [facility] Start: 12-08-2021 End: 12-08-2021 Patient encounter procedure Alex YUAN [facility] [place] Start: 11-13-2021 End: 11-14-[address] ALFONSO LU Facility:[facility] Start: 11-09-2021 Encounter for genera l adult medical examination without abnormal findings DR ALFONSO LU [facility] Start: 11-06-2021 End: 11-07-[address] ALFONSO LU Facility:[facility] Start: 11-05-2021 End: 11-06-[address] ALFONSO LU Facility:[facility] Start: 11-05-2021 End: 11-06-2021 Encounter for general adult medical examination without abnormal findings DR ALFONSO LU Facility:[facility] Start: 06-29-2021 End: 06-29-[address] ALFONSO LU Facility:[facility] Start: 05-07-2021 End: 05-07-[address] ALFONSO LU Facility:[facility] Procedures Date Procedure Procedure Detail Performing Clinician Start: 12-01-2023 Mammography Alfonso pratt MD Work Phone: Start: 10-10-2018 Colonoscopy Alfonso pratt MD Work Phone: Start: 10-10-2018 Colonoscopy Alex SOUZA Appendectomy Alex YUAN Right salpingo-oophorectomy Alex YUAN Tubal (disorder) M ichstephon YUAN Vaginal hysterectomy Alex YUAN Plan of Treatment Date Care Activity Detail Author Start: 10-10-2028 Screening for malign ant neoplasm of colon [facility] Start: 12-05-2024 End: 12-05-2024 Patient encounter procedure 12/05/2024 9:30 AM EDT Office Visit [facility] [address] [place] [id number] Alfonso Lu MD [address] [place] [id number] [facility] Start: 11-30-2024 Screening for malign ant neoplasm of breast Mammogram [facility] Start: 09-06-2024 End: 09-06-2025 XR Lumbar spine 2 or 3 Views XR lumbar spine 2 or 3 views Imaging Routine Lumbar spondylosis Expected: 09/06/2024, Expires: 09/06/[address] [facility] Work Phone: Comment on above: Expected: 09/06/2024 , Expires: 09/06/2025 Start: 06-26-2024 End: 06-26-2024 Patient encounter procedure 06/26/2024 9:45 AM EST [facility] [facility] [address] [place] [id number] Alfonso Lu MD [address] [place] [address] [facility] Start: 04-08-2024 Influenza vaccination Influenza Vacc ine (#1) [facility] Start: 03-27-2024 End: 03-27-2024 Patient encounter procedure 03/27/2024 9:45 AM EDT Office Visit [facility] [address] [place] [id number] Alfonso Lu MD [address] [place] [phone] Arrived [facility] Comment on above: Arrived Start: 2000 Screening for malign ant neoplasm of cervix [facility] Start: 1991 Screening for malign ant neoplasm of cervix Pap Smear [facility] Start: 1970 Screening for malign ant neoplasm of colon [facility] Immunizations Immunization Date Immunization Notes Care Provider Fa cility 06-04-2021 influenza virus vacc ine, unspecified formulation Alfonso Lu MD Work Phone: [facility] Payers Date Payer Category Payer Managed Care HMO (unspecified) [id number] 1970 Unknown [id number] 2.16.84 [id number] 1970 Unknown [id number] 2.16.84 [id number] 1970 Unknown [id number] 2.16.84 [id number] 1970 Unknown [id number] 2.16.84 [id number] 1970 Unknown [id number] 2.16.84 [id number] 1970 Unknown [id number] [id number] 1970 Unknown [id number] [id number] 1970 Unknown [id number] [id number] 1970 Unknown [id number] [id number] 1970 Unknown [id number] 2.16.840.1.853712.3.579.2.1259 1970 Unknown [id number] [id number] 1970 Unknown [id number] 1959 Private Health Insurance [id number] Social History Date Type Detail Facility Start: 12-08-2021 End: 11-17-2023 Tobacco smoking status Never smoked tobacco (finding) [facility] Tobacco smoking status Never [facility] Start: 10-24-2023 End: 11-17-2023 Sex Assigned At Female [facility] Start: 11-17-2023 Tobacco use and exposure Smokeless tobacco non-user [facility] Start: 03-27-2024 End: 09-06-2024 Alcoholic beverage intake Ex-drinker (finding) [facility] Start: 10-24-2023 End: 11-17-2023 History of Social function [facility] Are you now , , , , never or living with a partner? [facility] How often to you hav e a drink containing alcohol? Never [facility] Do you feel stress - tense, restless, nervous, or anxious, or unable to sleep at night because your mind is troubled all the time - these days [OSQ] Rather much [facility] (I/We) worried whether (my/our) food would run out before (I/we) got money to buy more. Never true [facility] In the past 12 months, was there a time when you were not able to pay the mortgage or rent on time? No [facility] Start: 1970 Sex assigned at Not on file [facility] NEGATED: Highlighted rowStart: NINF History of tobacco use Passive smoker [facility] History of Present illness Narrative 09-06-2024 Alfonso Lu MD - 09/06/2024 4:13 PM Vinicius Lu MD - 09/06/2024 3:45 PM EST Note Date & Type Note Facility 09-06-2024 History of Presen t illness Narrative Associated Problem(s): Lumbar spondylosis Worsening pain and treat with prednisone. Repeat x-ray. Start flexeril PRN and continue motrin. Use heat and massage PRN. If worsens may need PT or MRI. Images from the original note were not included. Subjective Patient ID: Amy Wade is a 54 y.o. female who presents for Back Pain (Lower back). C/o low back pain off and on for years but worse over past few weeks. Pain in low back and across top hips. Pain radiates into left gluteal region and down leg. Pain worse with walking, standing, bending, and lifting. Starting to notice weakness in legs. C/o pressure over pelvis and bladder when pain worse. No fall, injury or trauma. No change in activity or lifting. Using motrin and mild relief. Not tried heat. Prior x-ray showed arthritis changes but several years since last imaging. Review of Systems Respiratory: Negative for cough, shortness of breath and wheezing. Cardiovascular: Negative for chest pain and palpitations. Gastrointestinal: Negative for abdominal pain, diarrhea, nausea and vomiting. Genitourinary: Negative for dysuria. Objective Physical Exam Constitutional: General: She is not in acute distress. Appearance: Normal appearance. HENT: Head: Normocephalic. Right Ear: Tympanic membrane normal. Left Ear: Tympanic membrane normal. Eyes: Extraocular Movements: Extraocular movements intact. Pupils: Pupils are equal, round, and reactive to light. Cardiovascular: Rate and Rhythm: Normal rate and regular rhythm. Heart sounds: No murmur heard. No friction rub. No gallop. Pulmonary: Effort: Pulmonary effort is normal. Breath sounds: Normal breath sounds. No wheezing, rhonchi or rales. Abdominal: General: Bowel sounds are normal. There is no distension. Palpations: Abdomen is soft. Tenderness: There is no abdominal tenderness. There is no guarding or rebound. Musculoskeletal: Cervical back: Neck supple. Right lower leg: No edema. Left lower leg: No edema. Comments: TTP lower lumbar region and across top hips. Neurological: Mental Status: She is alert. Assessment/Plan Problem List Items Addressed This Visit Lumbar spondylosis - Primary Worsening pain and treat with prednisone. Repeat x-ray. Start flexeril PRN and continue motrin. Use heat and massage PRN. If worsens may need PT or MRI. Relevant Medications predniSONE (Deltasone) 50 MG tablet cyclobenzaprine (Flexeril) 10 MG tablet Other Relevant Orders XR lumbar spine 2 or 3 views documented in this encounter [facility] History of Present illness Narrative 03-27-2024 Alfonso Lu MD - 03/27/2024 10:25 AM EDDrea Lu MD - 03/27/2024 10:24 AM Joaquin Lu MD - 03/27/2024 10:24 AM Joaquin Lu MD - 03/27/2024 10:24 AM EDT Note Date & Type Note Facility 03-27-2024 History of Presen t illness Narrative Associated Problem(s): Epilepsy, temporal lobe (CMS/HCC) Follow with neurology Associated Problem(s): Vertigo Frequent symptoms and use meclizine PRN. Start home vestibular rehab exercises. Associated Problem(s): NAFL (nonalcoholic fatty liver) Tolerating ozempic and weight down 19 pounds. Associated Problem(s): Mild intermittent asthma without complication (CMS/HCC) Symptoms improved and use albuterol PRN. Associated Problem(s): Migraine without aura and without status migrainosus, not intractable (CMS/HCC) PUGA stable and use ibuprofen PRN. Associated Problem(s): OSCAR (generalized anxiety disorder) ([facility]) Symptoms mild and continue xanax PRN. Images from the original note were not included. Subjective Patient ID: Amy Wade is a 53 y.o. female who presents for Migraine and Dizziness. Follow up migraines, anxiety, asthma, and vertigo. C/o vertigo worse over past few months. Off and on for years but getting worse. Develop motion and room spinning with movement. Frequently wake up with symptoms. Symptoms if turn head or look down. Symptoms worse with turning to left. Frequently lightheaded and off balance. Never to vestibular rehab and not tried OTC. Migraines stable and about once a week. Often triggered by vertigo. Throbbing pain in entire head associated with photophobia, phonophobia and nausea. Using motrin PRN and helps. Asthma improved and mild SOB with exertion. Occasional dry cough. Using albuterol PRN and helps when needed. Anxiety stable. Not as stressed out or overwhelmed. Not as nervous or worry as much. Not as girard or irritable. Using xanax PRN and helps. Started ozempic for [place] and doing well. Weight down 19 pounds. Review of Systems Respiratory: Negative for cough, shortness of breath and wheezing. Cardiovascular: Negative for chest pain and palpitations. Gastrointestinal: Negative for abdominal pain, diarrhea, nausea and vomiting. Genitourinary: Negative for dysuria. Objective Physical Exam Constitutional: General: She is not in acute distress. Appearance: Normal appearance. HENT: Head: Normocephalic. Right Ear: Tympanic membrane normal. Left Ear: Tympanic membrane normal. Eyes: Extraocular Movements: Extraocular movements intact. Pupils: Pupils are equal, round, and reactive to light. Cardiovascular: Rate and Rhythm: Normal rate and regular rhythm. Heart sounds: No murmur heard. No friction rub. No gallop. Pulmonary: Effort: Pulmonary effort is normal. Breath sounds: Normal breath sounds. No wheezing, rhonchi or rales. Abdominal: General: Bowel sounds are normal. There is no distension. Palpations: Abdomen is soft. Tenderness: There is no abdominal tenderness. There is no guarding or rebound. Musculoskeletal: Cervical back: Neck supple. Right lower leg: No edema. Left lower leg: No edema. Neurological: Mental Status: She is alert. Assessment/Plan Problem List Items Addressed This Visit OSCAR (generalized anxiety disorder) (CMS/HCC) Symptoms mild and continue xanax PRN. Epilepsy, temporal lobe (CMS/HCC) Follow with neurology Mild intermittent asthma without complication (CMS/HCC) Symptoms improved and use albuterol PRN. NAFL (nonalcoholic fatty liver) Tolerating ozempic and weight down 19 pounds. Vertigo - Primary Frequent symptoms and use meclizine PRN. Start home vestibular rehab exercises. Relevant Medications meclizine (Antivert) 25 MG tablet Migraine without aura and without status migrainosus, not intractable (CMS/HCC) PUGA stable and use ibuprofen PRN. documented in this encounter [facility] Clinical Note 12-08-2021 Note Date & Type Note Facility 12-08-2021 Note Chief Complaint consultation for nodules HPI Staff 51 year old female presents on consultation from Dr. Lu for nodules to chest and left rib. Chest nodule present x 2 months. Rib nodule present x 6 months. Reports both have increased in size. Denies either being painful or tender. CXR and US chest completed 11/05- normal. CT chest completed 11/13- negative. History of Present Illness 51 y female with h/o ADD, MDD, dyslipidemia, epilepsy, OSCAR, IBS, lumbar spondylosis, migraines; referred for possible mass right anterior chest and left lateral chest wall; noticed right chest wall area in mirror; felt left rib area, no injury to areas, no pain or skin changes; US, CXR and chest ct without abnormalities in these areas; no previous chest surgery or XRT; no tobacco use. Review of Systems PHQ Score Initial Depression Screen Score: 0 ROS - Provider Constitutional: no fever, no sweats, no weight loss. Eyes: no glasses, no blurred vision, no visual loss. ENMT: no dentures, no hoarseness, no swallowing difficulties, no hearing loss, no ear infection(s), no nose bleeds. Cardiovascular: normal blood pressure, no chest pain, regular heartbeat, no heart murmur. Respiratory: no shortness of breath, no cough, no asthma, no wheezing. Gastrointestinal: no nausea, no vomiting, no diarrhea, no constipation, no blood in stool, no change in bowel habits, no abdominal pain, no hepatitis. Genitourinary: no kidney stones, no urine infection, no dysuria. Musculoskeletal: no pain, no weakness. Skin: no changing moles, no rash, no skin lumps. Neurologic: no seizures, no epilepsy, no headache. Psychiatric: no emotional or psychiatric problem. Heme/Lymph: no bleeding problems, no anemia, no blood clots, no transfusions. Allergy/Immunologic: no swollen lymph nodes/glands, no IV drug abuse. Other: Additional ROS info: Except as noted in the above Review of Systems and in the History of Present Illness, all other systems have been reviewed and are negative or noncontributory. Physical Exam Vitals & Measurements HR: 55(Peripheral) RR: 16 BP: 152/93 HT: 160.02 cm HT: 160.0 cm WT: 67.5 kg WT: 67.5 kg BMI: 26.36 HEENT: normal conjunctiva, sclera clear, no scleral icterus, EOM intact, PERRLA, oral mucosa moist without lesions. Respiratory: lungs CTA, respirations non labored. Cardiovascular: regular rate and rhythm, no murmur, no pedal edema or varicosities. anterior chest wall without skin changes, no palpable nodules or thickening; left chest area just with palpable rib; no nodularity or skin changes; nontender. Lymphatic: no cervical adenopathy, no axillary adenopathy, no inguinal adenopathy. Musculoskeletal: normal gait, digits and nails without infection, nodes, cyanosis, clubbing. Skin: no rashes, no lesions, no ulcers, no subcutaneous nodules, induration. Psychiatric/Neuro: oriented to time, place, person, judgement normal, affect appropriate for age, insight intact, no focal deficits. Tests: x-rays reviewed, review of old records completed, Assessment/Plan 1. Mass of right chest wall (R22.2: Localized swelling, mass and lump, trunk) no evidence of mass on exam, US, CXR or chest ct; likely just feeling rib/muscle; call with problems/questions. Follow-up No qualifying data available Problem List/Past Medical History Ongoing ADD (attention deficit disorder) BMI 26.0-26.9,adult Dyslipidemia Epilepsy OSCAR (generalized anxiety disorder) HTN (hypertension) IBS (irritable bowel syndrome) Insomnia Lumbar spondylosis Mass of right chest wall MDD (major depressive disorder) Migraines Historical No qualifying data Procedure/Surgical History Colonoscopy (10/10/2018), Appendectomy, Right salpingo-oophorectomy, Tubal , Vaginal hysterectomy. Medications alprazolam, 1 mg, Oral, Daily lisinopril 10 mg Tab, 10 mg= 1 tab(s), Oral, Daily Allergies No Known Allergies Social History Alcohol - Denies Alcohol Use, 12/08/2021 Substance Abuse - Denies Substance Abuse, 12/08/2021 Tobacco Never (less than 100 in lifetime) Tobacco Use:. Never Smokeless Tobacco Use:., 12/08/2021 Family History Diabetes mellitus type 2: Sister. Heart disease: Father. Hypertension: Father. Renal failure syndrome: Mother. Uterine cancer: Mother. [facility] Comment on above: Result Comment: Elec tronically Signed By: KWABENA TAMAYO, Alex Clinton.[email or web address]\Date and Time Signed: 12/08/21 09:36 EDT Evaluation + Plan note Note Date & Type Note Facility Evaluation + Plan note No data available for this section [facility] [place] Evaluation note Note Date & Type Note Facility Evaluation note Diagnosis Annual physical exam- Primary Routine general medical examination at a health care facility Essential hypertension, benign (CMS/HCC) Essential hypertension, benign Gastroesophageal reflux disease without esophagitis Esophageal reflux Generalized abdominal pain Abdominal pain, generalized SOB (shortness of breath) on exertion Shortness of breath Breast cancer screening by mammogram NAFL (nonalcoholic fatty liver)- Primary Other chronic nonalcoholic liver disease Metabolic syndrome Dysmetabolic Syndrome X Mild intermittent asthma without complication (CMS/HCC) Dyslipidemia (CMS/HCC) Other and unspecified hyperlipidemia Vertigo- Primary Dizziness and giddiness Migraine without aura and without status migrainosus, not intractable (CMS/HCC) OSCAR (generalized anxiety disorder) (CMS/HCC) Generalized anxiety disorder Mild intermittent asthma without complication (CMS/HCC) NAFL (nonalcoholic fatty liver) Other chronic nonalcoholic liver disease Epilepsy, temporal lobe (CMS/HCC) Localization-related (focal) (partial) epilepsy and epileptic syndromes with complex partial seizures, without mention of intractable epilepsy OSCAR (generalized anxiety disorder) (CMS/HCC) Generalized anxiety disorder documented in this encounter [facility] Evaluation note Note Date & Type Note Facility Evaluation note Diagnosis Vertigo- Primary Dizziness and giddiness Migraine without aura and without status migrainosus, not intractable (CMS/HCC) OSCAR (generalized anxiety disorder) (CMS/HCC) Generalized anxiety disorder Mild intermittent asthma without complication (CMS/HCC) NAFL (nonalcoholic fatty liver) Other chronic nonalcoholic liver disease Epilepsy, temporal lobe (CMS/HCC) Localization-related (focal) (partial) epilepsy and epileptic syndromes with complex partial seizures, without mention of intractable epilepsy documented in this encounter [facility] Evaluation note Note Date & Type Note Facility Evaluation note Diagnosis OSCAR (generalized anxiety disorder) (CMS/HCC) Generalized anxiety disorder documented in this encounter [facility] Evaluation note Note Date & Type Note Facility Evaluation note Diagnosis Annual physical exam- Primary Routine general medical examination at a health care facility Essential hypertension, benign (CMS/HCC) Essential hypertension, benign Gastroesophageal reflux disease without esophagitis Esophageal reflux Generalized abdominal pain Abdominal pain, generalized SOB (shortness of breath) on exertion Shortness of breath Breast cancer screening by mammogram NAFL (nonalcoholic fatty liver)- Primary Other chronic nonalcoholic liver disease Metabolic syndrome Dysmetabolic Syndrome X Mild intermittent asthma without complication (CMS/HCC) Dyslipidemia (CMS/HCC) Other and unspecified hyperlipidemia Vertigo- Primary Dizziness and giddiness Migraine without aura and without status migrainosus, not intractable (CMS/HCC) OSCAR (generalized anxiety disorder) (CMS/HCC) Generalized anxiety disorder Mild intermittent asthma without complication (CMS/HCC) NAFL (nonalcoholic fatty liver) Other chronic nonalcoholic liver disease Epilepsy, temporal lobe (CMS/HCC) Localization-related (focal) (partial) epilepsy and epileptic syndromes with complex partial seizures, without mention of intractable epilepsy Lumbar spondylosis- Primary Lumbosacral spondylosis without myelopathy documented in this encounter [facility] Discharge instructions Note Date & Type Note Facility Hospital Discharge instructions No data available for this section [facility] [place] Summary Purpose Family History No Family History Records FoundNo Family History Records FoundNo Family History Records FoundNo Family History Records Found Advance Directives No Advanced Directives Records FoundNo Advanced Directives Records FoundNo Advanced Directives Records FoundNo Advanced Directives Records Found Additional Source Comments INFORMATION SOURCE (unrecogn ized section and content) DATE CREATED AUTHOR 11/18/2021 [facility] DATE CREATED AUTHOR AUTHOR'S ORGANIZ ATION 12/09/2021 Solorio Benzie [facility] DATE CREATED AUTHOR AUTHOR'S ORGANIZ ATION 11/27/2023 [facility] DATE CREATED AUTHOR AUTHOR'S ORGANIZ ATION 03/28/2024 [facility] EPIC Reason for Visit (unrecogniz ed section and content) Reason Onset Date Comments Med Refill 06/14/2024 Reason Comments Migraine Dizziness Reason Onset Date Comments Med Refill 04/12/2024 Reason Comments Back Pain Lower back Care Teams (unrecognized sec tion and content) Enterprise Infrastructure Architect Relationship Specialty Start Date End Date Alfonso Lu MD [address] [place] [id number] PCP - General Family Medicine 10/26/23 Enterprise Infrastructure Architect Relationship Specialty Start Date End Date Alfonso Lu MD [address] [place] [phone] PCP - General Family Medicine 10/26/23 Enterprise Infrastructure Architect Relationship Specialty Start Date End Date Alfonso Lu MD [address] [place] [phone] PCP - General Family Medicine 10/26/23 Enterprise Infrastructure Architect Relationship Specialty Start Date End Date Alfonso Lu MD [address] [place] [phone] PCP - General Family Medicine 10/26/23 Enterprise Infrastructure Architect Relationship Specialty Start Date End Date Alfonso Lu MD [address] [place] [phone] PCP - General Family Medicine 10/26/23 FOR RECORDS PERTAINING TO PATIENTS WHO ARE OR HAVE BEEN ENROLLED IN A CHEMICAL DEPENDENCY/SUBSTANCEABUSE PROGRAM, SOME INFORMATION MAY BE OMITTED. This clinical summary was aggregated from multiple sources. Caution should be exercised in using it in the provision of clinical care. This summary normalizes information from multiple sources, and as a consequence, information in this document may materially change the coding, format and clinical context of patient data. In addition, data may be omitted in some cases. CLINICAL DECISIONS SHOULD BE BASED ON THE PRIMARY CLINICAL RECORDS. [facility] [employer] [facility]. provides no warranty or guarantee of the accuracy or completeness of information in this document.
== END 2024-09-07 12:55 | disposition home or self-care (01) ==
LOC: LAB 12:55 → RAD 12:59
PROVIDERS: PCP Family Medicine; Visit Provider Family Medicine
DX: M47.816 Spondylosis without myelopathy or radiculopathy, lumbar region (principal); M51.369 Other intervertebral disc degeneration, lumbar region without mention of lumbar back pain or lower extremity pain
CPT/HCPCS: 72100

== ENCOUNTER 2024-09-28 08:51 | Outpatient (OUT) | payer OTHER, SELFPAY ==
--- NOTE | 2024-09-28 08:54 | MR_ITS ---
The [address] [address] Patient Name: AMY WADE MRN: [id number] date: 1970 Sex: F Assigned Patient Location: MRI Current Patient Location: MRI Accession/Order Number: [id number] Exam Date: 09/28/2024 10:46 Report Date: 09/28/2024 10:59 At the request of: MITCH LU MD Procedure: MR lumbar spine wo con MR lumbar spine wo con 09/28/2024 9:40 AM SIGNS AND SYMPTOMS: ^Lumbar Radiculopathy PROTOCOL: Multiplanar multisequence MR images were obtained without IV COMPARISON: 09/07/2024. FINDINGS: The bones of the lumbar spine are in anatomic alignment. There is preservation of vertebral body heights. There is disc desiccation and mild disc height loss at L2-L3, L3-L4, and L4-5. The marrow signal is within normal limits. The conus terminates at the inferior endplate of the L1 vertebral body level. No epidural or paraspinous fluid collection is appreciated. Simple cysts are noted in the renal cortices requiring no further follow-up. At T12-L1: There is a normal disc, central canal, and neural foramen. At L1-L2: There is a normal disc, central canal, and neural foramen. At L2-L3: There is a normal disc, central canal, and neural foramen. At L3-L4: There is a broad-based disc bulge with facet hypertrophy contributing to mild spinal canal narrowing and mild bilateral neural foraminal narrowing. At L4-L5: There is a broad-based disc bulge with facet hypertrophy contributing to mild bilateral neural foraminal stenosis and minimal spinal canal narrowing. At L5-S1: There is a normal disc, central canal, and neural foramen. MR/MR lumbar spine wo con IMPRESSION: At L3-L4: There is a broad-based disc bulge with facet hypertrophy contributing to mild spinal canal narrowing and mild bilateral neural foraminal narrowing. At L4-L5: There is a broad-based disc bulge with facet hypertrophy contributing to mild bilateral neural foraminal stenosis and minimal spinal canal narrowing. Impression dictated by: Jose Wayne M.D.09/28/2024 10:59 AM Dictation Location: [employer] Electronically authenticated by: [id number] Y Date: 09/28/2024 10:59
--- OUTSIDE RECORDS SUMMARY | 2024-09-28 09:08 | XMS_ITS | CCD ---
Author Organization [facility] Care Team Providers Care Professional Advisor Name Role Phone TABITHA, DR ALFONSO Krause Attending Unavailable NADERER, DR ALFONSO Krause Admitting Unavailable NADERER, DR ALFONSO Krause Consulting Unavailable NADERER, DR ALFONSO Krause Admitting Unavailable MONAE, DR CURLY Charles Consulting Unavailable NADERER, DR ALFONSO Krause Attending Unavailable NADERER, DR ALFONSO Krause Consulting Unavailable NADERER, DR ALFONSO Krause Admitting Unavailable JAGRUTI, DR MAYCOL Preciado Consulting Unavailable NADERER, DR ALFONSO Krause Attending Unavailable NADERER, DR ALFONSO Krause Consulting Unavailable NADERER, DR ALFONSO Krause Admitting Unavailable WEST, DR MAYCOL Preciado Consulting Unavailable NADERER, DR ALFONSO Krause Attending Unavailable NADERER, DR ALFONSO Krause Consulting Unavailable NADERER, DR ALFONSO Krause Attending Unavailable NADERER, DR ALFONSO Krause Admitting Unavailable NADERER, DR ALFONSO Krause Consulting Unavailable MITUL REZA Primary Care Physician ALFONSO LU Primary Care Unavailable OSWALDO MERCHANT Attending Unavailable ALFONSO LU Primary Care Unavailable ALEX GRIFFIN Attending Unavailab OSWALDO Babb Attending Unavailable OSWALDO MERCHANT Referring Unavailable ALFONSO LU Primary Care Unavailable Alfonso Lu MD Primary Care Provider ALFONSO LU Attending Unavailable TABITHA, ALFONSO Attending Unavailable CHELSEA STEWART Attending Unavailable TABITHA, ALFONSO Referring Unavailable TABITHA, ALFONSO Attending Unavailable TABITHA, ALFONSO Attending Unavailable Allergies Allergy Classification Reported Allergen(s) Allergy Type Date of Onset Reaction(s) Facility (8 sources) fentaNYL; Translations: [FENTANYL] Drug Allergy 4 GI intolerance [facility] Medications Current Medications Medication Drug Class(es) Dates Sig (Normalized) Sig (Original) [id number] 200 actuat albuterol 0.09 mg/actuat metered dose inhaler (8 sources) beta2-Adrenergic Agonist Start: 11-17-2023 take 2 puff(s) by inhalation every four hours for wheezing albuterol HFA 90 mcg/act inhaler Indications: Mild intermittent asthma without complication (CMS/HCC) Inhale 2 puffs every 4 (four) hours if needed for wheezing 18 g 3 11/17/2023 Active ALPRAZolam 1 mg oral tablet (11 sources) Benzodiazepine Start: 08-31-2023 End: 07-14-2024 take [...] Ordered cyclobenzaprine hydrochloride 10 mg oral tablet (3 sources) Muscle Relaxant Start: 09-06-2024 take 1 tablet by mouth three times daily as needed for muscle spasms cyclobenzaprine (Flexeril) 10 MG tablet Indications: Lumbar spondylosis Take 1 tablet (10 mg) by mouth 3 (three) times a day as needed for muscle spasms 60 tablet 2 09/06/2024 Active ibuprofen 800 mg oral tablet (8 sources) Nonsteroidal Anti-inflammatory Drug Start: 09-14-2023 take [...] Ordered meclizine hydrochloride 25 mg oral tablet (7 sources) Antiemetic Start: 03-27-2024 take 1 tablet by mouth four times daily as needed for dizziness meclizine (Antivert) 25 MG tablet Indications: Vertigo Take 1 tablet (25 mg) by mouth 4 (four) times a day as needed for dizziness 60 tablet 2 03/27/2024 Active predniSONE 50 mg oral tablet (3 sources) Start: 09-06-2024 End: 09-12-2024 take 1 tablet by mouth once daily predniSONE (Deltasone) 50 MG tablet Indications: Lumbar spondylosis Take 1 tablet (50 mg) by mouth Daily for 6 days 6 tablet 09/06/2024 09/12/2024 Active Semaglutide,0.25 or 0.5MG/DOS, (Ozempic, 0.25 or 0.5 MG/DOSE,) 2 MG/3ML solution pen-injector (8 sources) Start: 07-30-2024 Semaglutide,0.25 or 0.5MG/DOS, (Ozempic, [...] Date Documented Da te Episodic/Chronic Anxiety disorders (13 sources) Generalized anxiety disorder; Translations: [Generalized anxiety disorder] Onset: 4 11-24-2021 Chronic Asthma (10 sources) Mild intermittent asthma; Translations: [Mild intermittent asthma, uncomplicated] Onset: 4 11-09-2023 Chronic Attention-deficit, conduct, and disruptive behavior disorders (1 source) Attention deficit hyperactivity disorder, predominantly inattentive type 11-24-2021 Chronic Disorders of lipid metabolism (9 sources) Dyslipidemia; Translations: [Hyperlipidemia, unspecified] Onset: 4 11-24-2021 Chronic Epilepsy; convulsions (11 sources) Epilepsy; 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] Onset: 4 11-24-2021 Chronic Esophageal disorders (8 sources) Gastroesophageal reflux disease without esophagitis; Translations: [Gastro-esophageal reflux disease without esophagitis] Onset: 4 10-26-2023 Chronic Essential hypertension (9 sources) Hypertensive disorder; Translations: [Benign essential hypertension] Onset: 4 11-24-2021 Chronic Headache; including migraine (10 sources) Migraine; Translations: [Migraine without aura, not refractory ] Onset: 4 11-24-2021 Chronic Headache; including migraine (1 source) Headache Onset: Episodic Headache; including migraine (2 sources) Headache; including migraine; Translations: [Headache, unspecified] Onset: 4 Nausea and vomiting (2 sources) Nausea with vomiting, unspecified; Translations: [Vomiting] Onset: Episodic Other gastrointestinal disorders (1 source) Irritable bowel syndrome 11-24-2021 Chronic Other gastrointestinal disorders (8 sources) Irritable bowel syndrome characterized by constipation; Translations: [Irritable bowel syndrome with constipation] Onset: 4 09-14-2023 Chronic Other liver diseases (10 sources) Non-alcoholic fatty liver; Translations: [Fatty (change of) liver, not elsewhere classified] Onset: 4 11-17-2023 Chronic Other nutritional; endocrine; and metabolic disorders (8 sources) Metabolic syndrome X; Translations: [Metabolic syndrome] [...] Spondylosis; intervertebral disc disorders; other back problems (11 sources) Lumbar spondylosis; Translations: [Spondylosis without myelopathy or radiculopathy, lumbar region] Onset: 4 11-24-2021 Chronic Unclassified (3 sources) CONTACT W/AND (SUSP) EXPOS COVID-19; Translations: [CONTACT W/AND (SUSP) EXPOS COVID-19] Onset: 1 Past or Other Problems Problem Classification Problem Date Documented Date Episodic/Chronic Abdominal pain (8 sources) Generalized abdominal pain; Translations: [Generalized abdominal pain] Onset: 10-26-2023 10-26-2023 Episodic Conditions associated with dizziness or vertigo (9 sources) Vertigo; Translations: [Dizziness and giddiness] Onset: 03-27-2024 03-27-2024 Episodic Disorders usually diagnosed in infancy, childhood, or adolescence (8 sources) Adult attention deficit hyperactivity disorder ; Translations: [Other specified behavioral and emotional disorders with onset usually occurring in childhood and adolescence] Onset: 09-14-2023 Resolved: 11-17-2023 11-17-2023 Chronic Mood disorders (9 sources) Major depressive disorder; Translations: [Recurrent major depressive episodes, mild ] Onset: 09-14-2023 Resolved: 11-17-2023 11-24-2021 Chronic Other screening for suspected conditions (not mental disorders or infectious disease) (12 sources) Encounter for screening mammogram for malignant neoplasm of breast; Translations: [Mammography abnormal] Onset: 11-06-2021 Episodic Unclassified (1 source) CONTACT W/AND (SUSP) EXPOS COVID-19; Translations: [CONTACT W/AND (SUSP) EXPOS COVID-19] Onset: 06-29-2021 Results Test Name Value Interpretation Reference Range Facility XR LUMBAR SPINE 2 [place] [address] [address] XRay Report Signed Patient: AMY WADE MR#: [id number] : 1970 Acct:[id number] Age/Sex: 54 / F ADM Date: 09/07/24 Loc: RAD Attending Dr: Alfonso Lu M.D. Ordering Physician: Alfonso Lu M.D. Date of Service: 09/07/24 Procedure(s): XR lumbar spine 2-3V Accession Number(s): [id number] cc: Alfonso Lu M.D. [place] [address] Patient Name: AMY WADE MRN: [id number] date: 1970 Sex: F Assigned Patient Location: [facility] Current Patient Location: Accession/Order Number: [id number] Exam Date: 09/07/2024 13:38 Report Date: 09/10/2024 11:42 At the request of: ALFONSO LU Procedure: XR lumbar spine 2-3V EXAMINATION: XR lumbar spine 2-3V HISTORY: Lumbar Spondylosis ; chronic low back pain COMPARISON: No relevant comparison available. FINDINGS: BONES: Mild-moderate degenerative facet arthropathy L3-4 through L5-S1. No fracture or spondylolisthesis. DISC SPACES: Moderate narrowing L5-S1. PARASPINOUS: Negative. No paraspinous abnormality is seen. OTHER: Negative. XR/XR lumbar spine 2-3V IMPRESSION: 1. Moderate degenerative changes of lower lumbar spine. Consider MRI for further evaluation. Electronically authenticated by: CURLY HERNANDEZ Date: 09/10/2024 11:42 Dictated By: Curly Hernandez M.D. Signed By: 09/10/24 1145 DD/ 1142 TD/TT: Healthcare Corporate Account Director: [facility] Radiology, Radiologist, - 09/10/2024 [place] [address] XRay Report Signed Patient: AMY WADE MR#: [id number] : 1970 Acct:[id number] Age/Sex: 54 / F ADM Date: 09/07/24 Loc: RAD Attending Dr: Alfonso Lu M.D. Ordering Physician: Alfonso Lu M.D. Date of Service: 09/07/24 Procedure(s): XR lumbar spine 2-3V Accession Number(s): [id number] cc: Alfonso Lu M.D. [facility] [place] [address] Patient Name: AMY WADE MRN: [facility]:[id number] date: 1970 Sex: F Assigned Patient Location: [facility] Current Patient Location: Accession/Order Number: [id number] Exam Date: 09/07/2024 13:38 Report Date: 09/10/2024 11:42 At the request of: ALFONSO LU Procedure: XR lumbar spine 2-3V EXAMINATION: XR lumbar spine 2-3V HISTORY: Lumbar Spondylosis ; chronic low back pain COMPARISON: No relevant comparison available. FINDINGS: BONES: Mild-moderate degenerative facet arthropathy L3-4 through L5-S1. No fracture or spondylolisthesis. DISC SPACES: Moderate narrowing L5-S1. PARASPINOUS: Negative. No paraspinous abnormality is seen. OTHER: Negative. XR/XR lumbar spine 2-3V IMPRESSION: 1. Moderate degenerative changes of lower lumbar spine. Consider MRI for further evaluation. Electronically authenticated by: CURLY HERNANDEZ Date: 09/10/2024 11:42 Dictated By: Curly Hernandez M.D. Signed By: 09/10/24 1145 DD/ 114 TD/TT: Healthcare Corporate Account Director: [facility] Radiology Study observation (narrative) [facility] XR LUMBAR SPINE 2 OR 3VOrder ed By: Radiologist Radiology on 09-10-2024 [facility] e Work Phone: CBC AND AUTO DIFFon 11-26-19 ABSOLUTE BASOPHIL 0.0 X10E9/L Normal 0.0-0.2 [facility] Comment on above: Performed By: #### Jaimee LINDO CMP, 3040-3 #### [facility] ([id number]) [address] [place] [address] 24838 ABSOLUTE NEUTROPHIL 5.2 X10E9/L Normal 1.5-6.6 [facility] Comment on above: Performed By: #### Jaimee LINDO CMP, 3039-3 #### [facility] ([id number]) [address] [place] [address] 38759 Basophils/100 WBC (Bld) 0.7 % Normal [facility] Comment on above: Performed By: #### Jaimee LINDO CMP, 3039-3 #### [facility] ([id number]) [address] [place] [address] 12599 Eosinophils (Bld) [#/Vol] 0.0 10*3/uL Normal 0.0-0.4 [facility] Comment on above: Performed By: #### Jaimee LINDO [facility], 3039-3 #### [facility] ([id number]) [address] [place] [address] 40559 Eosinophils/100 WBC (Bld) 0.1 % Normal [facility] Comment on above: Performed By: #### Jaimee LINDO CMP, 3039-3 #### [facility] ([id number]) [address] [place] [address] 98257 Erythrocyte distribution width (RBC) [Ratio] 14.4 % Normal 11.5-15.0 [facility] Comment on above: Performed By: #### Jaimee LINDO CMP, 3039-3 #### [facility] ([id number]) [address] [place] [address] 93914 Hematocrit (Bld) [Volume fraction] 41.3 % Normal 35-47 [facility] Comment on above: Performed By: #### Jaimee LINDO CMP, 3 #### [facility] ([id number]) [address] [place] [address] 52397 Hemoglobin (Bld) [Mass/Vol] 14.0 g/dL Normal 11.7-15.5 [facility] Comment on above: Performed By: #### Jaimee LINDO CMP, 3039-10 #### [facility] ([id number]) [address] [place] [address] 19515 Lymphocytes (Bld) [#/Vol] 1.1 10*3/uL Normal 1.0-3.5 [facility] Comment on above: Performed By: #### Jaimee LINDO CMP, 3039-10 #### [facility] ([id number]) [address] [place] [address] 41414 Lymphocytes/100 WBC (Bld) 16.8 % Normal [facility] Comment on above: Performed By: #### Jaimee LINDO CMP, 3039-10 #### [facility] ([id number]) [address] [place] [address] 89035 MCH (RBC) [Entitic mass] 29.0 pg Normal 27-34 [facility] Comment on above: Performed By: #### Jaimee LINDO CMP, 3039-10 #### [facility] ([id number]) [address] [place] [address] 81738 MCHC (RBC) [Mass/Vol] 33.9 g/dL Normal 32-36 [facility] Comment on above: Performed By: #### Jaimee LINDO CMP, 3039-10 #### [facility] ([id number]) [address] [place] [address] 28604 MCV (RBC) [Entitic vol] 86 fL Normal 80-100 [facility] Comment on above: Performed By: #### Jaimee LINDO, CMP, 3039-3 #### [facility] ([id number]) [address] [place] [address] 64425 Monocytes (Bld) [#/Vol] 0.5 10*3/uL Normal 0-0.9 [facility] Comment on above: Performed By: #### Jaimee LINDO, CMP, 3039-3 #### [facility] ([id number]) [address] [place] [address] 14178 Monocytes/100 WBC (Bld) 6.8 % Normal [facility] Comment on above: Performed By: #### Jaimee LINDO, CMP, 3039-10 #### [facility] ([id number]) [address] [place] [address] 45730 Neutrophils/100 WBC (Bld) 75.6 % Normal [facility] Comment on above: Performed By: #### Jaimee BCA, CMP, 3 #### [facility] ([id number]) [address] [place] [address] 10196 Platelet mean volume (Bld) [Entitic vol] 9.9 fL Normal 7-12 [facility] Comment on above: Performed By: #### Jaimee LINDO, CMP, 3039-3 #### [facility] ([id number]) [address] [place] [address] 42474 Platelets (Bld) [#/Vol] 296 10*3/uL Normal 150-450 [facility] Comment on above: Performed By: #### Jaimee BCA, CMP, 3039-3 #### [facility] ([id number]) [address] [place] [address] 27883 RBC COUNT 4.82 X10E12/L Normal 3.80-5.20 [facility] Comment on above: Performed By: #### Jaimee LINDO, CMP, 3039-3 #### [facility] ([id number]) [address] [place] [address] 70589 WBC (Bld) [#/Vol] 6.8 10*3/uL Normal 4.0-11.0 [facility] Comment on above: Performed By: #### C BELGICA, CMP, 3040-3 #### [facility] ([id number]) [address] [place] [address] 44579 COMPREHENSIVE METABOLIC PANE Maulik 11-26-2023 Albumin [Mass/Vol] 4.7 g/dL Normal 3.2-5.3 [facility] Comment on above: Performed By: #### C BELGICA, CMP, 3040-3 #### [facility] ([id number]) [address] [place] [address] 02225 ALP [Catalytic activity/Vol] 77 U/L Normal 39-130 [facility] Comment on above: Performed By: #### Jaimee BCA, CMP, 0-3 #### [facility] ([id number]) [address] [place] [address] 00773 ALT [Catalytic activity/Vol] 23 U/L Normal 0-31 [facility] Comment on above: Result Comment: SPEC IMEN HEMOLYZED, RESULTS INCREASED Performed By: #### Jaimee LINDO, CMP, 3040-3 #### [facility] ([id number]) [address] [place] [address] 73755 Anion gap [Moles/Vol] 12 mmol/L Normal 5-15 [facility] Comment on above: Performed By: #### Jaimee BCA, CMP, 3040-3 #### [facility] ([id number]) [address] [place] [address] 65408 AST [Catalytic activity/Vol] 34 U/L Normal 0-41 [facility] Comment on above: Result Comment: SPEC IMEN HEMOLYZED, RESULTS INCREASED Performed By: #### C BCA, CMP, 3040-3 #### [facility] ([id number]) [address] [place] [address] 56863 Bilirubin [Mass/Vol] 1.2 mg/dL Normal 0.3-1.2 [facility] Comment on above: Result Comment: RESU LTS QUESTIONABLE DUE TO HEMOLYSIS Performed By: #### C TAHIRA LINDO, 3040-3 #### [facility] ([id number]) [address] [place] [address] 37162 Calcium [Mass/Vol] 9.3 mg/dL Normal 8.5-10.5 [facility] Comment on above: Performed By: #### C TAHIRA LINDO, 3040-3 #### [facility] ([id number]) [address] [place] [address] 93199 Chloride [Moles/Vol] 106 mmol/L Normal 98-109 [facility] Comment on above: Performed By: #### Jaimee LINDO CMP, 304-3 #### [facility] ([id number]) [address] [place] [address] 10330 CO2 [Moles/Vol] 21 mmol/L Low 22-32 [facility] Comment on above: Performed By: #### Jaimee LINDO CMP, 0-3 #### [facility] ([id number]) [address] [place] [address] 95184 Creatinine [Mass/Vol] 0.79 mg/dL Normal 0.40-1.00 [facility] Comment on above: Result Comment: METH OD TRACEABLE TO IDMS STANDARD Performed By: #### Jaimee LINDO CMP, 3040-3 #### [facility] ([id number]) [address] [place] [address] 18845 GFR/1.73 sq M.predicted among non-blacks MDRD (S/P/Bld) [Vol rate/Area] 89 mL/min/{1.73_m2} Normal >59 [facility] Comment on above: Result Comment: Reported eGFR is based on the CKD-EPI 2020 equation that does not use a race coefficient. Performed By: #### C TAHIRA LINDO, 3040-3 #### [facility] ([id number]) [address] [place] [address] 39767 Glucose [Mass/Vol] 90 mg/dL Normal 65-99 [facility] Comment on above: Performed By: #### C TAHIRA LINDO, 0-3 #### [facility] ([id number]) [address] [place] [address] 88388 Potassium [Moles/Vol] 4.0 mmol/L Normal 3.5-5.0 [facility] Comment on above: Result Comment: SPEC IMEN HEMOLYZED, RESULTS INCREASED Performed By: #### C TAHIRA LINDO, 3040-3 #### [facility] ([id number]) [address] [place] [address] 45262 Protein [Mass/Vol] 8.2 g/dL High 6.0-8.0 [facility] Comment on above: Performed By: #### Jaimee LINDO CMP, 3040-3 #### [facility] ([id number]) [address] [place] [address] 84311 Sodium [Moles/Vol] 139 mmol/L Normal 134-146 [facility] Comment on above: Performed By: #### Jaimee LINDO CMP, 3040-3 #### [facility] ([id number]) [address] [place] [address] 64119 Urea nitrogen [Mass/Vol] 21 mg/dL Normal 5-23 [facility] Comment on above: Performed By: #### Jaimee LINDO CMP, 3040-3 #### [facility] ([id number]) [address] [place] [address] BRAIN WO CONTon 4 CT BRAIN WO CONT CT BRAIN WO [...] dose to as low as reasonably achievable. 4 Finalized by Nicola Saleh MD on 11/26/2023 10:40 AM Normal [facility] LIPASEon 11-26-2023 Lipase [Catalytic activity/Vol] 27 U/L Normal 17-40 [facility] Comment on above: Performed By: #### C BCA, CMP, 3040-3 #### [facility] ([id number]) [address] [place] [address] 14422 URN MACROSCOPIC NURon 2023 BILIRUBIN DAYDAY Small Abnormal NEG [facility] Comment on above: Performed By: #### N UM #### [facility] ([id number]) [address] [place] [address] 10465 BLOOD/HGB DAYDAY Trace Abnormal NEG [facility] Comment on above: Performed By: #### N UM #### [facility] ([id number]) [address] [place] [address] 68817 GLUCOSE DAYDAY Negative Normal [facility] Comment on above: Performed By: #### N UM #### [facility] ([id number]) [address] [place] [address] 25150 KETONES DAYDAY 40 mg/dL Abnormal NEG [facility] Comment on above: Performed By: #### N UM #### [facility] ([id number]) [address] [place] [address] 06994 LEUKOCYTE ESTERASE DAYDAY Negative Normal NEG [facility] Comment on above: Performed By: #### N UM #### [facility] ([id number]) [address] [place] [address] 34996 NITRITE DAYDAY Negative Normal NEG [facility] Comment on above: Performed By: #### N UM #### [facility] ([id number]) [address] [place] [address] 11782 PH DAYDAY 5.5 Normal 5.0-8.5 [facility] Comment on above: Performed By: #### N UM #### [facility] ([id number]) [address] [place] [address] 09692 PROTEIN DAYDAY Negative Normal NEG [facility] Comment on above: Performed By: #### N UM #### [facility] ([id number]) [address] [place] [address] 41733 SPECIFIC GRAVITY DAYDAY >=1.030 Normal 1.003-1.035 [facility] Comment on above: Performed By: #### N UM #### [facility] ([id number]) [address] [place] [address] 67059 UROBILINOGEN DAYDAY 0.2 eu/dL Normal <1.1 [facility] Comment on above: Performed By: #### N UM #### [facility] ([id number]) [address] [place] [address] 41648 RAD - CT Reporton 12-03-2021 RAD - CT Report [id number]. [id number] 12#1.00CD:127 Normal [facility] RAD - MISCon 11-29-2021 RAD - MISC [id number] 96#1.00CD:127 Normal [facility] RAD - Ultrasound Reporton RAD - Ultrasound Report [id number] 25#1.00CD:127 Normal [facility] Physician Referralon 022 Physician Referral [id number]. [id number] 89#1.00CD:[address] [facility] [address] CHEST W CONon 11-13-2021 CT [...] for patient's palpable lumps. Electronically authenticated by: CURLY HERNANDEZ Date: 2021-11-13 09:15 Normal [facility] MAMM SCREEN 3D HERLINDA CADon 11-06-2021 MG MAMM SCREEN 3D HERLINDA CAD Patient: AMY WADE Exam Date: 11/06/2021 : 1970 Gender:F Ordering : DR ALFONSO LU . Admission #: [id number] Family : Order #: [id number] CLICK HERE TO VIEW EXAM RADIOLOGY REPORT PROCEDURE: MAMMOGRAM SCREENING 3D BILATERAL CAD COMPARISON: None. INDICATIONS: Screening mammography Calculator Name NCI Breast Cancer Risk Assessment Tool 5 Year Breast Cancer Risk 0.80% Lifetime Breast Cancer Risk 7.00% Personal Breast Cancer No Personal Ovarian Cancer No Treatments None Family Cancers Grandmother-paterna l with lung cancer at age 64; Aunt-maternal with lung cancer at age 58; Uncle-maternal with lung cancer at age 66. LOCATION: [facility] BREAST COMPOSITION: Scattered areas fibroglandular density. FINDINGS: [...] MD on 11/06/2021 at 09:22 Normal [facility] CBC AUTO DIFFon 11-05-2021 BASO # 0.0 103/ul Normal 0.0-0.1 [facility] Comment on above: Performed By: #### L IVER, LIPID, BMP, TSH #### [facility] [address] [place] [address] Dr. Saray Daniels Basophils/100 WBC (Bld) 1.0 % Normal 0.2-2.0 [facility] Comment on above: Performed By: #### L IVER, LIPID, BMP, TSH #### [facility] [address] [place] [address] Dr. Saray Daniels EO # 0.2 103/ul Normal 0.0-0.7 [facility] Comment on above: Performed By: #### L IVER, LIPID, BMP, TSH #### [facility] [address] [place] [address] Dr. Saray Daniels Eosinophils/100 WBC (Bld) 3.8 % Normal 0.9-7.0 [facility] Comment on above: Performed By: #### L IVER, LIPID, BMP, TSH #### [facility] [address] [place] [address] Dr. Saray Daniels Erythrocyte distribution width (RBC) [Ratio] 13.2 % Normal 11.0-15.0 [facility] Comment on above: Performed By: #### L IVER, LIPID, BMP, TSH #### [facility] [address] [place] [address] Dr. Saray Daniels Hematocrit (Bld) [Volume fraction] 36.0 % Normal 36.0-48.0 [facility] Comment on above: Performed By: #### L IVER, LIPID, BMP, TSH #### [facility] [address] [place] [address] Dr. Saray Daniels Hemoglobin (Bld) [Mass/Vol] 11.9 g/dL Critically low 12.0-16.0 [facility] Comment on above: Performed By: #### L IVER, LIPID, BMP, TSH #### [facility] [address] [place] [address] Dr. Saray Daniels IG # 0.00 10e3/ul Normal 0.00-0.03 [facility] Comment on above: Performed By: #### L IVER, LIPID, BMP, TSH #### [facility] [address] [place] [address] Dr. Saray Daniels IG % 0.0 % Normal 0.0-0.5 [facility] Comment on above: Performed By: #### L IVER, LIPID, BMP, TSH #### [facility] [address] [place] [address] Dr. Saray Daniels LYMPH # 1.9 103/ul Normal 1.2-3.8 [facility] Comment on above: Performed By: #### L IVER, LIPID, BMP, TSH #### [facility] [address] [place] [address] Dr. Saray Daniels Lymphocytes/100 WBC (Bld) 48.3 % Normal 20.5-60.0 [facility] Comment on above: Performed By: #### L IVER, LIPID, BMP, TSH #### [facility] [address] [place] [address] Dr. Saray Daniels MANUAL DIFF REQ NO Normal [facility] Comment on above: Performed By: #### L IVER, LIPID, BMP, TSH #### [facility] [address] [place] [address] Dr. Saray Daniels MCH (RBC) [Entitic mass] 29.2 pg Normal 26.7-34.0 [facility] Comment on above: Performed By: #### L IVER, LIPID, BMP, TSH #### [facility] [address] [place] [address] Dr. Saray Daniels MCHC (RBC) [Mass/Vol] 33.1 g/dL Normal 29.9-35.2 [facility] Comment on above: Performed By: #### L IVER, LIPID, BMP, TSH #### [facility] [address] [place] [address] Dr. Saray Daniels MCV (RBC) [Entitic vol] 88.2 fL Normal 81.0-99.0 [facility] Comment on above: Performed By: #### L IVER, LIPID, BMP, TSH #### [facility] [address] [place] [address] Dr. Saray Daniels MONO # 0.4 103/ul Normal 0.3-0.8 [facility] Comment on above: Performed By: #### L IVER, LIPID, BMP, TSH #### [facility] [address] [place] [address] Dr. Saray Daniels Monocytes/100 WBC (Bld) 10.5 % Normal 1.7-12.0 [facility] Comment on above: Performed By: #### L IVER, LIPID, BMP, TSH #### [facility] [address] [place] [address] Dr. Saray Daniels NEUT # 1.4 103/ul Normal 1.4-6.5 [facility] Comment on above: Performed By: #### L IVER, LIPID, BMP, TSH #### [facility] [address] [place] [address] Dr. Saray Daniels Neutrophils/100 WBC (Bld) 36.4 % Critically low 43.0-75.0 [facility] Comment on above: Performed By: #### L IVER, LIPID, BMP, TSH #### [facility] [address] [place] [address] Dr. Saray Daniels Platelet mean volume (Bld) [Entitic vol] 10.4 fL Normal 9.5-13.5 [facility] Comment on above: Performed By: #### L IVER, LIPID, BMP, TSH #### [facility] [address] [place] [address] Dr. Saray Daniels PLT 220 103/ul Normal 150-450 [facility] Comment on above: Performed By: #### L IVER, LIPID, BMP, TSH #### [facility] [address] [address] [address] Saray Daniels RBC 4.08 106/ul Critically low 4.20-5.40 [facility] Comment on above: Performed By: #### L IVER, LIPID, BMP, TSH #### [facility] [address] [address] [address] Saray Daniels WBC 3.9 103/ul Critically low 4.0-11.0 [facility] Comment on above: Performed By: #### L IVER, LIPID, BMP, TSH #### [facility] [address] [address] [address] Saray Daniels GLYCOHEMOGLOBIN A1Con 2021 ADA RECOMMENDATION ADA THERAPEUTIC TARGET 6.0 - 7.0 ACTION SUGGESTED > 7.0 Normal [facility] Comment on above: Performed By: #### A 1C #### [facility] [address] [address] [address] Saray Daniels Glucose [Mass/Vol] 114 mg/dL Normal [facility] Comment on above: Performed By: #### A 1C #### [facility] [address] [address] [address] Saray Daniels HbA1c (Bld) [Mass fraction] 5.6 % Normal <=6.0 [facility] Comment on above: Performed By: #### A 1C #### [facility] [address] [address] [address] Saray Daniels LIPID PROFILEon 11-05-2021 CHOL-HDL RATIO NORM SEE BELOW Normal [facility] Comment on above: Result Comment: 3.3 - 4.4 LOW RISK 4.4 - 7.1 AVERAGE RISK 7.1 - 11.0 MODERATE RISK >11.0 HIGH RISK Performed By: #### L IVER, LIPID, BMP, TSH #### [facility] [address] [address] [address] Saray Daniels Cholesterol [Mass/Vol] 212 mg/dL Critically high <=200 [facility] Comment on above: Performed By: #### L IVER, LIPID, BMP, TSH #### [facility] [address] [address] [address] Saray Daniels Cholesterol in HDL [Mass/Vol] 78 mg/dL Critically high 40-60 [facility] Comment on above: Performed By: #### L IVER, LIPID, BMP, TSH #### [facility] [address] [address] [address] Saray Daniels Cholesterol in LDL [Mass/Vol] 126.4 mg/dL Normal [facility] Comment on above: Performed By: #### L IVER, LIPID, BMP, TSH #### [facility] [address] [address] [address] Saray Daniels Cholesterol.total/Cho lesterol in HDL [Mass ratio] 2.7 {ratio} Normal [facility] Comment on above: Performed By: #### L IVER, LIPID, BMP, TSH #### [facility] [address] [address] [address] Saray Daniels HDL NORMAL > or = 60 mg/dl - LOW CARDIOVASCULAR RISK <40 mg/dl - HIGH CARDIOVASCULAR RISK Normal [facility] Comment on above: Performed By: #### L IVER, LIPID, BMP, TSH #### [facility] [address] [address] [address] Saray Daniels LDL CALC NORMAL SEE BELOW Normal [facility] Comment on above: Result Comment: <100 mg/dl OPTIMAL 100 - 129 mg/dl NEAR OR ABOVE OPTIMAL 130 - 159 mg/dl BORDERLINE HIGH 160 - 189 mg/dl HIGH >190 mg/dl VERY HIGH Performed By: #### L IVER, LIPID, BMP, TSH #### [facility] [address] [address] [address] Saray Daniels Triglyceride [Mass/Vol] 38 mg/dL Normal <=150 [facility] Comment on above: Performed By: #### L IVER, LIPID, BMP, TSH #### [facility] [address] [address] [address] Saray Daniels VLDL CALC 7.6 mg/dL Normal [facility] Comment on above: Performed By: #### L IVER, LIPID, BMP, TSH #### [facility] [address] [place] [address] Dr. Saray Daniels LIVER PROFILEon 11-05-2021 Albumin [Mass/Vol] 3.9 g/dL Normal 3.4-5.0 [facility] Comment on above: Performed By: #### L IVER, LIPID, BMP, TSH #### [facility] [address] [place] [address] Dr. Saray Daniels Albumin/Globulin [Mass ratio] 1.3 {ratio} Normal [facility] Comment on above: Performed By: #### L IVER, LIPID, BMP, TSH #### [facility] [address] [place] [address] Dr. Saray Daniels ALP [Catalytic activity/Vol] 69 U/L Normal 46-116 [facility] Comment on above: Performed By: #### L IVER, LIPID, BMP, TSH #### [facility] [address] [place] [address] Dr. Saray Daniels ALT [Catalytic activity/Vol] 25 U/L Normal 14-59 [facility] Comment on above: Performed By: #### L IVER, LIPID, BMP, TSH #### [facility] [address] [place] [address] Dr. Saray Daniels AST [Catalytic activity/Vol] 21 U/L Normal 15-37 [facility] Comment on above: Performed By: #### L IVER, LIPID, BMP, TSH #### [facility] [address] [place] [address] Dr. Sarya Daniels BILI, CONJUGATED 0.1 mg/dL Normal 0.0-0.3 [facility] Comment on above: Performed By: #### L IVER, LIPID, BMP, TSH #### [facility] [address] [place] [address] Dr. Saray Daniels Bilirubin [Mass/Vol] 0.4 mg/dL Normal 0.2-1.3 [facility] Comment on above: Performed By: #### L IVER, LIPID, BMP, TSH #### [facility] [address] [place] [address] Dr. Saray Daniels Globulin (S) [Mass/Vol] 3.0 g/dL Normal [facility] Comment on above: Performed By: #### L IVER, LIPID, BMP, TSH #### [facility] [address] [place] [address] Dr. Saray Daniels Protein [Mass/Vol] 6.9 g/dL Normal 6.1-8.2 [facility] Comment on above: Performed By: #### L IVER, LIPID, BMP, TSH #### [facility] [address] [place] [address] Dr. Saray Daniels PROF CHEM 8 (BAS METB)on Anion gap [Moles/Vol] 11.2 mmol/L Normal [facility] Comment on above: Performed By: #### L IVER, LIPID, BMP, TSH #### [facility] [address] [place] [address] Dr. Saray Daniels Calcium [Mass/Vol] 8.6 mg/dL Normal 8.5-10.1 [facility] Comment on above: Performed By: #### L IVER, LIPID, BMP, TSH #### [facility] [address] [place] [address] Dr. Saray Daniels Chloride [Moles/Vol] 106 mmol/L Normal 98-107 [facility] Comment on above: Performed By: #### L IVER, LIPID, BMP, TSH #### [facility] [address] [place] [address] Dr. Saray Daniels CO2 [Moles/Vol] 29.4 mmol/L Normal 22.0-30.0 [facility] Comment on above: Performed By: #### L IVER, LIPID, BMP, TSH #### [facility] [address] [place] [address] Dr. Saray Daniels Creatinine [Mass/Vol] 0.62 mg/dL Normal 0.52-1.04 [facility] Comment on above: Performed By: #### L IVER, LIPID, BMP, TSH #### [facility] [address] [address] [address] Saray Daniels EGFR-AF FAROESE >60 Normal >=60 [facility] Comment on above: Performed By: #### L IVER, LIPID, BMP, TSH #### [facility] [address] [address] [address] Saray Daniels EGFR-NON AF FAROESE >60 Normal >=60 [facility] Comment on above: Performed By: #### L IVER, LIPID, BMP, TSH #### [facility] [address] [address] [address] Saray Daniels Glucose [Mass/Vol] 89 mg/dL Normal 74-106 [facility] Comment on above: Performed By: #### L IVER, LIPID, BMP, TSH #### [facility] [address] [place] [address] Dr. Saray Daniels Potassium [Moles/Vol] 3.6 mmol/L Normal 3.4-5.0 [facility] Comment on above: Performed By: #### L IVER, LIPID, BMP, TSH #### [facility] [address] [address] [address] Saray Daniels Sodium [Moles/Vol] 143 mmol/L Normal 137-145 [facility] Comment on above: Performed By: #### L IVER, LIPID, BMP, TSH #### [facility] [address] [address] [address] Saray Daniels Urea nitrogen [Mass/Vol] 16.0 mg/dL Normal 7.0-18.0 [facility] Comment on above: Performed By: #### L IVER, LIPID, BMP, TSH #### [facility] [address] [place] [address] Dr. Saray Daniels Urea nitrogen/Creatinine [Mass ratio] 25.8 mg/mg Normal [facility] Comment on above: Performed By: #### L IVER, LIPID, BMP, TSH #### [facility] [address] [address] [address] Saray Daniels TSHon 11-05-2021 TSH 1.520 uIU/mL Normal 0.470-4.680 [facility] Comment on above: Performed By: #### L IVER, LIPID, BMP, TSH #### [facility] [address] [place], [place] [address] Dr. Saray Daniels TSH RANGE SEE BELOW Normal [facility] Comment on above: Result Comment: <0.3 4 UIU/ml HYPERTHYROID 0.34-5.60 UIU/ml EUTHYROID >5.60 UIU/ml HYPOTHYROID Performed By: #### L IVER, LIPID, BMP, TSH #### [facility] [address] [place], [place] [address] Dr. Saray Daniels US CHESTon 11-05-2021 US [...] MAYCOL CHAND Date: 2021-11-05 08:37 Normal [facility] XR CHEST 2 Von 11-05-2021 XR CHEST [...] MAYCOL CHAND Date: 2021-11-05 08:38 Normal [facility] Covid-19 PCR (CVDTB)on 06-09 SARS-CoV-2 (COVID-19) RNA JARRED+probe Ql (Unsp spec) Not detected Normal NOT DETECTED [facility] Comment on above: Result Comment: This test is not yet approved or cleared by the [place] FDA. When there are no FDA-approved or cleared tests available, and other criteria are met, FDA can make tests available under an emergency access mechanism called an Emergency Use Authorization (EUA). The EUA for this test is supported by the Director Of [place]ater[place] of Health and Human Service's (HHS's) declaration [...] SARS-CoV-2. Performed By: #### C VDTBH #### [facility] [address] [place] [address] Dr. Saray Daniels Covid-19 PCR ([facility])on 04-10 SARS-CoV-2 (COVID-19) RNA JARRED+probe Ql (Unsp spec) Not detected Normal NOT DETECTED [facility] Comment on above: Result Comment: This test is not yet approved or cleared by the [place] FDA. When there are no FDA-approved or cleared tests available, and other criteria are met, FDA can make tests available under an emergency access mechanism called an Emergency Use Authorization (EUA). The EUA for this test is supported by the [place] of Health and Human Service's (HHS's) declaration [...] #### L IVER, LIPID, BMP, TSH #### [facility] [address] [place] [address] [address] [address] Saray Daniels Vital Signs Date Time Vital Sign Value Performing Clinician Facility 09-06-2024 15:41-0500 Body height 160 cm Alfonso Lu MD Work Phone: [facility] 09-06-2024 15:41-0500 Body mass index (BMI) [Ratio] 26.04 kg/m2 Alfonso Lu MD Work Phone: [facility] 09-06-2024 15:41-0500 Body temperature 97.81 [degF] Alfonso Lu MD Work Phone: [facility] 09-06-2024 15:41-0500 Body weight 66.68 kg Alfonso Lu MD Work Phone: [facility] 09-06-2024 15:41-0500 Diastolic blood pressure 78 mm[Hg] Alfonso Lu MD Work Phone: [facility] 09-06-2024 15:41-0500 Heart rate 80 /min Alfonso Lu MD Work Phone: [facility] 09-06-2024 15:41-0500 Respiratory rate 18 /min Alfonso Lu MD Work Phone: [facility] 09-06-2024 15:41-0500 SaO2% (BldA) [Mass fraction] 98 % Alfonso Lu MD Work Phone: [facility] 09-06-2024 15:41-0500 Systolic blood pressure 126 mm[Hg] Alfonso Lu MD Work Phone: [facility] 03-27-2024 09:53-0400 Body height 160 cm Alfonso Lu MD Work Phone: [facility] 03-27-2024 09:53-0400 Body mass index (BMI) [Ratio] 24.98 kg/m2 Alfonso Lu MD Work Phone: [facility] 03-27-2024 09:53-0400 Body temperature 97.11 [degF] Alfonso Lu MD Work Phone: [facility] 03-27-2024 09:53-0400 Body weight 63.96 kg Alfonso Lu MD Work Phone: [facility] 03-27-2024 09:53-0400 Diastolic blood pressure 70 mm[Hg] Alfonso Lu MD Work Phone: [facility] 03-27-2024 09:53-0400 Heart rate 65 /min Alfonso Lu MD Work Phone: [facility] 03-27-2024 09:53-0400 Respiratory rate 20 /min Alfonso Lu MD Work Phone: [facility] 03-27-2024 09:53-0400 SaO2% (BldA) [Mass fraction] 98 % Alfonso Lu MD Work Phone: [facility] 03-27-2024 09:53-0400 Systolic blood pressure 112 mm[Hg] Alfonso Lu MD Work Phone: [facility] 12-08-2021 09:15-0400 Blood Pressure Location Alex NILL [facility] [place] 12-08-2021 09:15-0400 Diastolic blood pressure 93 mm[Hg] Alex NILL [facility] [place] 12-08-2021 09:15-0400 Heart rate 55 /min Alex NILL [facility] [place] 12-08-2021 09:15-0400 Respiratory rate 16 /min Alex NILL [facility] [place] 12-08-2021 09:15-0400 Systolic blood pressure 152 mm[Hg] Alex NILL [facility] [place] Encounters Encounter Date Encounter Type Care Provider Facility Start: 09-10-2024 End: 09-10-2024 Clinisync Result Encounter Alfonso Lu MD Work Phone: [facility] Unsolicited Start: 09-10-2024 End: 09-10-2024 Clinisync Result Encounter Alfonso Lu MD Work Phone: [facility] Unsolicited Start: 09-06-2024 End: 09-06-2024 Office outpatient visit 15 minutes Alfonso Lu MD Work Phone: [facility] Comment on above: Lumbar spondylosis ( Primary Dx) Start: 09-06-2024 End: 09-06-2024 ambulatory ALFONSO LU Not Available Start: 06-14-2024 End: 06-14-2024 Refill Alfonso Lu [...] not intractable (CMS/HCC); OSCAR (generalized anxiety disorder) (CMS/HCC); Mild intermittent asthma without complication (CMS/HCC); NAFL (nonalcoholic fatty liver); Epilepsy, temporal lobe (CMS/HCC) Start: 03-27-2024 End: 03-27-2024 ambulatory ALFONSO LU Not Available Start: 11-26-2023 End: 11-27-2023 Emergency department patient visit ALFONSO LU [facility] Start: 11-26-2023 End: 11-27-2023 Emergency department patient visit OSWALDO MERCHANT [facility] Start: 11-26-2023 End: 11-26-2023 Emergency department patient visit ALFONSO LU [facility] Start: 11-17-2023 End: 11-17-2023 ambulatory ALFONSO LU Not Available Start: 11-16-2023 End: 11-16-2023 ambulatory CHELSEA STEWART Not Available Start: 10-26-2023 End: 10-26-2023 ambulatory ALFONSO LU Not Available Start: 10-26-2023 Patient encounter procedure Alfonso Lu MD Work Phone: [facility] Start: 12-08-2021 End: 12-08-2021 Patient encounter procedure Alex YUAN [facility] [place] Start: 11-13-2021 End: 11-14-[address] ALFONSO LU Facility:[facility] Start: 11-09-2021 Encounter for genera l adult medical examination without abnormal findings DR ALFONSO LU [facility] Start: 11-06-2021 End: 11-07-[address] ALFONSO LU Facility:[facility] Start: 11-05-2021 End: 11-06-[address] ALFONSO LU Facility:[facility] Start: 11-05-2021 End: 11-06-2021 Encounter for general adult medical examination without abnormal findings DR ALFONSO LU Facility:[facility] Start: 06-29-2021 End: 06-29-[address] ALFONSO LU Facility:[facility] Start: 05-07-2021 End: 05-07-[address] ALFONSO LU Facility:[facility] Procedures Date Procedure Procedure Detail Performing Clinician Start: 09-10-2024 XR LUMBAR SPINE 2 OR 3V Alfonso Lu MD Work Phone: Start: 12-01-2023 Mammography Alfonso pratt MD Work Phone: Start: 10-10-2018 Colonoscopy Alfonso pratt MD Work Phone: Start: 10-10-2018 Colonoscopy Alex FAREED SOUZA Appendectomy Alex DEEJAYFrancisco Right salpingo-oophorectomy Alex KWABENA Tubal (disorder) Tiffany ichstephon YUAN Vaginal hysterectomy Alex KWABENA Plan of Treatment Date Care Activity Detail Author Start: 10-10-2028 Screening for malign ant neoplasm of colon [facility] Start: 12-05-2024 End: 12-05-2024 Patient encounter procedure 12/05/2024 9:30 AM EDT Office Visit [facility] [address] [place] [address] Alfonso Lu MD [address] [place] [address] [facility] Start: 11-30-2024 Screening for malign ant neoplasm of breast Mammogram [facility] Start: 09-06-2024 End: 09-06-2025 XR Lumbar spine 2 or 3 Views XR lumbar spine 2 or 3 views Imaging Routine Lumbar spondylosis Expected: 09/06/2024, Expires: 09/06/2025 [facility] Work Phone: Comment on above: Expected: 09/06/2024 , Expires: 09/06/2025 Start: 06-26-2024 End: 06-26-2024 Patient encounter procedure 06/26/2024 9:45 AM EST [facility] [address] [place] [id number] Alfonso Lu MD [address] [place] [phone] [facility] Start: 04-08-2024 Influenza vaccination Influenza Vacc ine (#1) [facility] Start: 03-27-2024 End: 03-27-2024 Patient encounter procedure 03/27/2024 9:45 AM EDT Office Visit [facility] [address] [place] [address] Alfonso Lu MD [address] [place] [phone] Arrived [facility] Comment on above: Arrived Start: 2000 Screening for malign ant neoplasm of cervix [facility] Start: 1991 Screening for malign ant neoplasm of cervix Pap Smear [facility] Start: 1970 Screening for malign ant neoplasm of colon [facility] Immunizations Immunization Date Immunization Notes Care Provider Fa cility 06-04-2021 influenza virus vacc ine, unspecified formulation Alfonso Lu MD Work Phone: [facility] Healthcare Payers Date Payer Category Payer [facility] Care O (unspecified) [id number] 1970 Unknown [id number] 2.16.84 [id number] 1970 Unknown [id number] 2.16.84 [id number] 1970 Unknown [id number] 2.16.84 [id number] 1970 Unknown [id number] 2.16.84 [id number] 1970 Unknown [id number] 2.16.84 [id number] 1970 Unknown [id number] 1970 Unknown [id number] 1970 Unknown [id number] [id number] 1970 Unknown [id number] [id number] 1970 Unknown [id number] [id number] 1970 Unknown [id number] [id number] 1970 Unknown [id number] 1970 Unknown [id number] 1959 Private Health Insurance [id number] Social History Date Type Detail Facility Start: 12-08-2021 End: 11-17-2023 Tobacco smoking status Never smoked tobacco (finding) [facility] Tobacco smoking status Never [facility] Start: 10-24-2023 End: 11-17-2023 Sex Assigned At Female [facility] Start: 11-17-2023 Tobacco use and exposure Smokeless [...] Alfonso Lu MD - 09/06/2024 4:13 PM ESTAlfonso Lu MD - 09/06/2024 3:45 PM EST [...] Alfonso Lu MD - 03/27/2024 10:25 AM EDjesus Lu MD - 03/27/2024 10:24 AM Joaquin Lu MD - 03/27/2024 10:24 AM EDDrea Lu MD - 03/27/2024 10:24 AM EDT [...] PRN. Associated Problem(s): OSCAR (generalized anxiety disorder) ([facility] Symptoms mild and continue xanax [...] use ibuprofen PRN. documented in this encounter [facility] Clinical Note 12-08-2021 Note Date & Type [...] Renal failure syndrome: Mother. Uterine cancer: Mother. [facility] Comment on above: Result Comment: Elec tronically Signed By: KWABENA TAMAYO, Alex Faria\Date and Time Signed: 12/08/21 09:36 EDT Evaluation + Plan note Note Date & Type Note Facility Evaluation + Plan note No data available for this section [facility] [place] Evaluation note Note Date & Type Note [...] Generalized anxiety disorder documented in this encounter [facility] Healthcare Evaluation note Note Date & [...] of intractable epilepsy documented in this encounter [facility] Healthcare Evaluation note Note Date & Type Note Facility Evaluation note Diagnosis OSCAR (generalized anxiety disorder) (CMS/HCC) Generalized anxiety disorder documented in this encounter [facility] Healthcare Evaluation note Note Date & [...] spondylosis without myelopathy documented in this encounter [facility] Healthcare Hospital Discharge instructions Note Date & Type Note Facility Hospital Discharge instructions No data available for this section [facility] General Surgery [place] Summary Purpose Family History No Family History Records FoundNo Family History Records FoundNo Family History Records FoundNo Family History Records Found Advance Directives No Advanced Directives Records FoundNo Advanced Directives Records FoundNo Advanced Directives Records FoundNo Advanced Directives Records Found Additional Source Comments INFORMATION SOURCE (unrecogn ized section and content) DATE CREATED AUTHOR 11/18/2021 [facility] DATE CREATED AUTHOR AUTHOR'S ORGANIZ ATION 12/09/2021 [facility] DATE CREATED AUTHOR AUTHOR'S ORGANIZ ATION 11/27/2023 [facility] DATE CREATED AUTHOR AUTHOR'S ORGANIZ ATION 09/08/2024 [facility] EPIC Reason for Visit (unrecogniz ed section and content) Reason Onset Date Comments Med Refill 06/14/2024 Reason Comments Migraine Dizziness Reason Onset Date Comments Med Refill 04/12/2024 Reason Comments Back Pain Lower back Care Teams (unrecognized sec tion and content) Professional Advisor Relationship Specialty Start Date End Date Alfonso Lu MD [address] [place] [address] PCP - General Family Medicine 10/26/23 Professional Advisor Relationship Specialty Start Date End Date Alfonso Lu MD [address] [place] [address] PCP - General Family Medicine 10/26/23 Professional Advisor Relationship Specialty Start Date End Date Alfonso Lu MD [address] [place] [address] PCP - General Family Medicine 10/26/23 Professional Advisor Relationship Specialty Start Date End Date Alfonso Lu MD [address] [place] [address] PCP - General Family Medicine 10/26/23 Professional Advisor Relationship Specialty Start Date End Date Alfonso Lu MD [address] [place] [id number] PCP - General Family Medicine 10/26/23 FOR [...] BE BASED ON THE PRIMARY CLINICAL RECORDS. [employer] provides no warranty or guarantee of the accuracy or completeness of information in this document.
== END 2024-09-28 08:52 | disposition home or self-care (01) ==
LOC: MRI 08:51
PROVIDERS: PCP Family Medicine; Visit Provider Family Medicine
DX: M47.816 Spondylosis without myelopathy or radiculopathy, lumbar region (principal); M51.369 Other intervertebral disc degeneration, lumbar region without mention of lumbar back pain or lower extremity pain
CPT/HCPCS: 72148